=== PATIENT | male | born 1965 | race Caucasian/White ===

== ENCOUNTER 2018-12-01 17:55 | Emergency (ER) | payer OTHER, SELFPAY ==
[2018-12-01 18:11] VITALS: BP 143/99; PULSE 61; RESP 14; TEMP 36.4; O2SAT 95
[2018-12-01] MEDS: Tetracaine 0.5% 4 ML BTL OP (18:49)
[2018-12-01] MEDS: Erythromycin Ophth Oint 3.5 GM TUBE OP (18:50)
[2018-12-01] MEDS: Fluorescein STRIPS 100/BOX 1 MG OP (18:50)
[2018-12-01] MEDS: Balanced Salt Solution 15 ML BTL (19:01)
[2018-12-01] MEDS: Balanced Salt Solution 15 ML BTL OP (19:01)
--- NOTE | 2018-12-01 20:00 | W.ED.GENAD ---
Discharge Plan Disposition Patient Disposition: HOME Condition: Stable Discharge Details Chief Complaint: EyeProblem Clinical Impression: Foreign body in eyeball, right Primary Care Provider: Grey Lo ED Provider: Balaji Solis Home Meds and New Rx's Prescriptions: No Action rosuvastatin 5 mg tablet 5 mg PO DAILY Qty: 90 RF: 4 sildenafil [Viagra] 100 mg tablet See Rx Instructions PO As Directed MDD 3 Qty: 7 RF: 5 clonazepam 0.5 mg tablet 0.5 mg PO DAILY PRN (Reason: anxiety) Qty: 30 RF: 0 chlorthalidone 25 mg tablet 25 mg PO DAILY Qty: 90 RF: 3 Fish Oil 500 MG capsule 2 tab PO DAILY RF: 0 oxymetazoline [Afrin (oxymetazoline)] 15 ML spray,non-aerosol 2 spry NS PRN PRNRF: 0 Aerochamber Plus Flow-Vu 1 EACH spacer 1 ea Miscellaneous PRN Qty: 1 RF: 0 magnesium oxide 400 MG tablet 400 mg PO HS Qty: 30 RF: 3 cetirizine [Zyrtec] 10 MG tablet 10 mg PO DAILY RF: 0 lisinopril 10 MG tablet 10 mg PO DAILY Qty: 90 RF: 4 albuterol sulfate [Ventolin HFA] 90 mcg/actuation HFA aerosol inhaler 2 puff IH Q6H PRN (Reason: shortness of breath or wheezing) Qty: 18 RF: 4 ibuprofen 800 mg tablet 800 mg PO TID PRN (Reason: pain) Qty: 90 RF: 3 metoprolol tartrate 25 mg tablet 12.5 mg PO BID Qty: 90 RF: 4 aspirin [E.C. Prin] 325 MG tablet,delayed release (DR/EC) 325 mg PO DAILY RF: 0 Trelegy Ellipta 100-62.5-25 mcg Blister With Device 1 ea Inhalation DAILY RF: 0 Discharge Instructions Instructions: Eye Foreign Body (ED) Additional Instructions: Please use provided ointment 4 times daily for the next 5 days and follow-up for normal reassessment in 3 days to [facility] Referrals: [facility] [Outside] - 3 days (Please call [facility] for any worsening symptoms to arrange emergent appointment or return to emergency department) Discharge Data Discharge Date/Time-TO BE ENTERED AT DEPARTURE: 12/01/18 20:09 Medical Decision Making Patient presenting to the emergency department for chief complaint of right eye pain. Patient states that it feels like there is a foreign body in his eye but he denies any known injury or trauma to the eye. Physical exam with Hardy lamp and slit lamp does show a very small foreign body to the right eye in the 12 o'clock position along with small dye uptake . Cornea and anterior chamber appears intact with no abnormalities. There is diffuse injection of the sclera but no other corneal abrasion or other findings noted. A moistened Q-tip was utilized to remove all visible foreign body, and eye was thoroughly irrigated. No more foreign bodies were noted. Patient was placed up on erythromycin ointment due to level of irritation. Return precautions were discussed. After discussion of diagnosis and plan of care patient has no further needs, questions, or concerns and states clear understanding to return to the emergency department for any worsening symptoms. HPI General Mode of arrival: ambulatory. Date/Time Provider Initiated Documentation: 12/01/18 17:56. Limitations to Documentation: no limitations. Information obtained by: patient. History of Present Illness 53 year old M presents to the emergency department with the chief complaint of right eye injury, described as moderate, with intensity rated at 5. Quality is described as aching and sharp, and is localized to the eyes and right. Patient started experiencing this hour(s) (5) and it has been constant. No relieving factors improve symptom(s), No exacerbating factors reported . Patient notes no other symptoms.. Related Data Home Medications Medication Instructions Recorded Confirmed aspirin [E.C. Prin] 325 mg PO DAILY 04/16/13 12/01/18 omega-3 fatty acids [Fish Oil] 2 tab PO DAILY 01/31/14 12/01/18 oxymetazoline [Afrin 2 spry NS PRN PRN spray 01/31/14 12/01/18 (oxymetazoline)] Aerochamber Plus Flow-Vu #1 02/10/15 11/23/18 magnesium oxide 400 mg PO HS #30 tab 05/06/16 12/01/18 cetirizine [Zyrtec] 10 mg PO DAILY tab-cap 02/15/17 12/01/18 lisinopril 10 mg PO DAILY #90 tab-cap 02/10/18 12/01/18 albuterol sulfate HFA 90 2 puff IH Q6H PRN #18 gm 07/05/18 12/01/18 mcg/actuation aerosol inhaler clonazepam 0.5 mg tablet 0.5 mg PO DAILY PRN #30 tab 07/14/18 12/01/18 ibuprofen 800 mg tablet 800 mg PO TID PRN #90 tab-cap 07/19/18 12/01/18 metoprolol tartrate 25 mg tablet 12.5 mg PO BID #90 tab-cap 09/11/18 12/01/18 chlorthalidone 25 mg tablet 25 mg PO DAILY #90 tab 10/05/18 12/01/18 rosuvastatin 5 mg tablet 5 mg PO DAILY #90 tab 11/23/18 12/01/18 sildenafil 100 mg tablet See Rx Instructions PO As Directed 11/23/18 11/23/18 #7 tab MDD 3 [id number] 1 ea INHALATION DAILY 12/01/18 12/01/18 [Odalis Alvarez] Previous Rx's Medication Instructions Recorded lisinopril 10 mg PO DAILY #90 tab-cap 02/10/18 albuterol sulfate HFA 90 2 puff IH Q6H PRN #18 gm 07/05/18 mcg/actuation aerosol inhaler clonazepam 0.5 mg tablet 0.5 mg PO DAILY PRN #30 tab 07/14/18 ibuprofen 800 mg tablet 800 mg PO TID PRN #90 tab-cap 07/19/18 metoprolol tartrate 25 mg tablet 12.5 mg PO BID #90 tab-cap 09/11/18 chlorthalidone 25 mg tablet 25 mg PO DAILY #90 tab 10/05/18 rosuvastatin 5 mg tablet 5 mg PO DAILY #90 tab 11/23/18 sildenafil 100 mg tablet See Rx Instructions PO As Directed 11/23/18 #7 tab MDD 3 Allergies Allergy/AdvReac Type Severity Reaction Status Date / Time No Known Allergies Allergy Verified 12/01/18 18:15 General Stated Complaint: EyeProblem ROMI: 4 Review of Systems Constitutional Denies chills, Denies fever(s) and Denies headache(s) Eyes Reports as per HPI, Denies change in vision, Reports irritation, Denies loss of vision, Reports eye pain and Denies seeing flashes ENT Denies headache(s) Neurologic Denies headache(s), Denies focal weakness, Denies loss of vision, Denies other visual disturbances and Denies sensory deficit PFSH Surgical History HERNIA REPAIR Rotator Cuff Repair Family History Mother Essential hypertension Hyperlipidemia Father Diabetes Essential hypertension Heart disease Hyperlipidemia Brother Essential hypertension Heart disease Hyperlipidemia Maternal Grandfather Heart disease Paternal Grandfather Heart disease Maternal Grandmother Essential hypertension Heart disease Hyperlipidemia Paternal Grandmother Essential hypertension Heart disease Hyperlipidemia Stroke Son Substance abuse Son No problems noted. Daughter No problems noted. Social History Smoking/Tobacco Use Status: Former Tobacco Use Alcohol Intake: current Alcohol Intake frequency: 0-2 drinks per day Alcohol type: hard liquor Drug use: Occasionally Substance use type: marijuana Household members: spouse Pets and animals: Yes Pets and animals: cat(s), dog(s) and horse(s) Do you think of yourself as: straight/heterosexual Current gender identity: decline to answer What is your relationship status?: How often do you talk on the phone with friends or family?: three or more times per week How often do you get together with friends or relatives?: once per week How often do you attend synagogue or latter day services?: decline to answer Do you belong to any clubs or organized social groups?: no Panel score (0-1 are the most socially isolated patients): 1 Duration: 15-30 minutes/day Frequency: 1-2 times per week Mirta/Yazidism: Latter Day Special mirta needs: No Do you feel safe in your relationship?: Yes Exam Const General: cooperative, no acute distress and not ill appearing Orientation: alert, awake and oriented x3 HENMT Mouth: moist mucous membranes Eyes Visual Mendez: normal visual mendez by confrontation Alignment and Position: alignment normal Periorbital: periorbital findings normal Eyelids: eyelids normal Conjunctivae: conjunctivae normal Sclera: scleral abnormality right foreign body and scleral injection Cornea: corneas normal Pupils: PERRL, normal by confrontation and accommodation normal EOM: EOM intact bilaterally Resp Effort & Inspection: normal respiratory effort, able to speak in complete sentences and no respiratory distress Neuro General: alert, awake, oriented x3, moves all extremities and no focal motor deficits Sensory Exam: no sensory deficits noted Course Vital Signs Temperature 36.4 C L 12/01/18 18:11 Pulse 61 12/01/18 18:11 Respiratory Rate 14 12/01/18 18:11 Blood Pressure 143/99 H 12/01/18 18:11 Pulse Oximetry 95 12/01/18 18:11 Temperature 36.4 C L 12/01/18 18:11 Temperature Source Skin 12/01/18 18:11 Pulse 61 12/01/18 18:11 Respiratory Rate 14 12/01/18 18:11 Respiratory Effort 12/01/18 18:14 Blood Pressure 143/99 H 12/01/18 18:11 Blood Pressure Position Sitting 12/01/18 18:11 Pulse Oximetry 95 12/01/18 18:11 Oxygen Delivery Method Room Air 12/01/18 18:11 Oxygen Flow Rate 0 12/01/18 18:11 Pain Level 5 12/01/18 18:11 Comment 12/01/18 18:11
--- NOTE | 2018-12-01 20:03 | ED.GENADUL_ITS ---
Discharge Plan Disposition Patient Disposition: HOME Condition: Stable Discharge Details Chief Complaint: EyeProblem Clinical Impression: Foreign body in eyeball, right Primary Care Provider: Grey Lo ED Provider: Balaji Solis Home Meds and New Rx's Prescriptions: No Action rosuvastatin 5 mg tablet 5 mg PO DAILY Qty: 90 RF: 4 sildenafil [Viagra] 100 mg tablet See Rx Instructions PO As Directed MDD 3 Qty: 7 RF: 5 clonazepam 0.5 mg tablet 0.5 mg PO DAILY PRN (Reason: anxiety) Qty: 30 RF: 0 chlorthalidone 25 mg tablet 25 mg PO DAILY Qty: 90 RF: 3 Fish Oil 500 MG capsule 2 tab PO DAILY RF: 0 oxymetazoline [Afrin (oxymetazoline)] 15 ML spray,non-aerosol 2 spry NS PRN PRNRF: 0 Aerochamber Plus Flow-Vu 1 EACH spacer 1 ea Miscellaneous PRN Qty: 1 RF: 0 magnesium oxide 400 MG tablet 400 mg PO HS Qty: 30 RF: 3 cetirizine [Zyrtec] 10 MG tablet 10 mg PO DAILY RF: 0 lisinopril 10 MG tablet 10 mg PO DAILY Qty: 90 RF: 4 albuterol sulfate [Ventolin HFA] 90 mcg/actuation HFA aerosol inhaler 2 puff IH Q6H PRN (Reason: shortness of breath or wheezing) Qty: 18 RF: 4 ibuprofen 800 mg tablet 800 mg PO TID PRN (Reason: pain) Qty: 90 RF: 3 metoprolol tartrate 25 mg tablet 12.5 mg PO BID Qty: 90 RF: 4 aspirin [E.C. Prin] 325 MG tablet,delayed release (DR/EC) 325 mg PO DAILY RF: 0 Trelegy Ellipta 100-62.5-25 mcg Blister With Device 1 ea Inhalation DAILY RF: 0 Discharge Instructions Instructions: Eye Foreign Body (ED) Additional Instructions: Please use provided ointment 4 times daily for the next 5 days and follow-up for normal reassessment in 3 days to the [facility] Referrals: [facility] [Outside] - 3 days (Please call the [facility] for any worsening symptoms to arrange emergent appointment or return to emergency department) Discharge Data Discharge Date/Time-TO BE ENTERED AT DEPARTURE: 12/01/18 20:09 Medical Decision Making Patient presenting to the emergency department for chief complaint of right eye pain. Patient states that it feels like there is a foreign body in his eye but he denies any known injury or trauma to the eye. Physical exam with Hardy lamp and slit lamp does show a very small foreign body to the right eye in the 12 o'clock position along with small dye uptake . Cornea and anterior chamber appears intact with no abnormalities. There is diffuse injection of the sclera but no other corneal abrasion or other findings noted. A moistened Q-tip was utilized to remove all visible foreign body, and eye was thoroughly irrigated. No more foreign bodies were noted. Patient was placed up on erythromycin ointment due to level of irritation. Return precautions were discussed. After discussion of diagnosis and plan of care patient has no further needs, questions, or concerns and states clear understanding to return to the emergency department for any worsening symptoms. HPI General Mode of arrival: ambulatory . Date/Time Provider Initiated Documentation: 12/01/18 17:56 . Limitations to Documentation: no limitations . Information obtained by: patient . History of Present Illness 53 year old M presents to the emergency department with the chief complaint of right eye injury, described as moderate, with intensity rated at 5. Quality is described as aching and sharp, and is localized to the eyes and right. Jessica ent started experiencing this hour(s) (5) and it has been constant. No relieving factors improve symptom(s), No exacerbating factors reported . Patient notes no other symptoms.. Related Data Home Medications Medication Instructions Recorded Confirmed aspirin [E.C. Prin] 325 mg PO DAILY 04/16/13 12/01/18 omega-3 fatty acids [Fish Oil] 2 tab PO DAILY 01/31/14 12/01/18 oxymetazoline [Afrin 2 spry NS PRN PRN spray 01/31/14 12/01/18 (oxymetazoline)] Aerochamber Plus Flow-Vu #1 02/10/15 11/23/18 magnesium oxide 400 mg PO HS #30 tab 05/06/16 12/01/18 cetirizine [Zyrtec] 10 mg PO DAILY tab-cap 02/15/17 12/01/18 lisinopril 10 mg PO DAILY #90 tab-cap 02/10/18 12/01/18 albuterol sulfate HFA 90 2 puff IH Q6H PRN #18 gm 07/05/18 12/01/18 mcg/actuation aerosol inhaler clonazepam 0.5 mg tablet 0.5 mg PO DAILY PRN #30 tab 07/14/18 12/01/18 ibuprofen 800 mg tablet 800 mg PO TID PRN #90 tab-cap 07/19/18 12/01/18 metoprolol tartrate 25 mg tablet 12.5 mg PO BID #90 tab-cap 09/11/18 12/01/18 chlorthalidone 25 mg tablet 25 mg PO DAILY #90 tab 10/05/18 12/01/18 rosuvastatin 5 mg tablet 5 mg PO DAILY #90 tab 11/23/18 12/01/18 sildenafil 100 mg tablet See Rx Instructions PO As Directed 11/23/18 11/23/18 #7 tab MDD 3 [id number] 1 ea INHALATION DAILY 12/01/18 12/01/18 [Odalis Alvarez] Previous Rx's Medication Instructions Recorded lisinopril 10 mg PO DAILY #90 tab-cap 02/10/18 albuterol sulfate HFA 90 2 puff IH Q6H PRN #18 gm 07/05/18 mcg/actuation aerosol inhaler clonazepam 0.5 mg tablet 0.5 mg PO DAILY PRN #30 tab 07/14/18 ibuprofen 800 mg tablet 800 mg PO TID PRN #90 tab-cap 07/19/18 metoprolol tartrate 25 mg tablet 12.5 mg PO BID #90 tab-cap 09/11/18 chlorthalidone 25 mg tablet 25 mg PO DAILY #90 tab 10/05/18 rosuvastatin 5 mg tablet 5 mg PO DAILY #90 tab 11/23/18 sildenafil 100 mg tablet See Rx Instructions PO As Directed 11/23/18 #7 tab MDD 3 Allergies Allergy/AdvReac Type Severity Reaction Status Date / Time No Known Allergies Allergy Verified 12/01/18 18:15 General Stated Complaint: EyeProblem ROMI: 4 Review of Systems Constitutional Denies chills, Denies fever(s) and Denies headache(s) Eyes Reports as per HPI, Denies change in vision, Reports irritation, Denies loss of vision, Reports eye pain and Denies seeing flashes ENT Denies headache(s) Neurologic Denies headache(s), Denies focal weakness, Denies loss of vision, Denies other visual disturbances and Denies sensory deficit PFSH Surgical History HERNIA REPAIR Rotator Cuff Repair Family History Mother Essential hypertension Hyperlipidemia Father Diabetes Essential hypertension Heart disease Hyperlipidemia Brother Essential hypertension Heart disease Hyperlipidemia Maternal Grandfather Heart disease Paternal Grandfather Heart disease Maternal Grandmother Essential hypertension Heart disease Hyperlipidemia Paternal Grandmother Essential hypertension Heart disease Hyperlipidemia Stroke Son Substance abuse Son No problems noted. Daughter No problems noted. Social History Smoking/Tobacco Use Status: Former Tobacco Use Alcohol Intake: current Alcohol Intake frequency: 0-2 drinks per day Alcohol type: hard liquor Drug use: Occasionally Substance use type: marijuana Household members: spouse Pets and animals: Yes Pets and animals: cat(s), dog(s) and horse(s) Do you think of yourself as: straight/heterosexual Current gender identity: decline to answer What is your relationship status?: How often do you talk on the phone with friends or family?: three or more times per week How often do you get together with friends or relatives?: once per week How often do you attend jain or methodist services?: decline to answer Do you belong to any clubs or organized social groups?: no Panel score (0-1 are the most socially isolated patients): 1 Duration: 15-30 minutes/day Frequency: 1-2 times per week Mirta/Buddhism: Adventism Special mirta needs: No Do you feel safe in your relationship?: Yes Exam Const General: cooperative, no acute distress and not ill appearing Orientation: alert, awake and oriented x3 HENMT Mouth: moist mucous membranes Eyes Visual Mnedez: normal visual mendez by confrontation Alignment and Position: alignment normal Periorbital: periorbital findings normal Eyelids: eyelids normal Conjunctivae: conjunctivae normal Sclera: scleral abnormality right foreign body and scleral injection Cornea: corneas normal Pupils: PERRL, normal by confrontation and accommodation normal EOM: EOM intact bilaterally Resp Effort & Inspection: normal respiratory effort, able to speak in complete sentences and no respiratory distress Neuro General: alert, awake, oriented x3, moves all extremities and no focal motor deficits Sensory Exam: no sensory deficits noted Course Vital Signs Temperature 36.4 C L 12/01/18 18:11 Pulse 61 12/01/18 18:11 Respiratory Rate 14 12/01/18 18:11 Blood Pressure 143/99 H 12/01/18 18:11 Pulse Oximetry 95 12/01/18 18:11 Temperature 36.4 C L 12/01/18 18:11 Temperature Source Skin 12/01/18 18:11 Pulse 61 12/01/18 18:11 Respiratory Rate 14 12/01/18 18:11 Respiratory Effort 12/01/18 18:14 Blood Pressure 143/99 H 12/01/18 18:11 Blood Pressure Position Sitting 12/01/18 18:11 Pulse Oximetry 95 12/01/18 18:11 Oxygen Delivery Method Room Air 12/01/18 18:11 Oxygen Flow Rate 0 12/01/18 18:11 Pain Level 5 12/01/18 18:11 Comment 12/01/18 18:11
[2018-12-01 20:09] VITALS: BP 143/99; PULSE 61; RESP 14; TEMP 36.4; O2SAT 95
== END 2018-12-01 20:09 | disposition home or self-care (01) ==
PROVIDERS: Emergency Provider Nurse Practitioner Family; PCP Family Medicine
DX: T15.81XA Foreign body in other and multiple parts of external eye, right eye, initial encounter (principal)
CPT/HCPCS: 99283

== ENCOUNTER 2019-02-20 12:28 | Outpatient (CLI) | payer OTHER, SELFPAY ==
--- NOTE | 2019-02-20 13:00 | DI.CTLCSR_ITS ---
SYMPTOMS/DIAGNOSIS: PERSONAL H/O NICOTINE DEPENDENCE, Z87.891 CT SCAN OF THE CHEST: CT scan of the chest was performed according to the lung cancer screening protocol. There are no priors for comparison. Mild atherosclerosis is seen of the thoracic aorta. No aneurysmal dilatation is seen. The heart size is within normal limits. No significant pericardial effusion is present. No significant thoracic adenopathy, pleural effusion or pneumothorax is identified. Coronary artery calcifications are present. There are calcified granuloma present in the lungs. No noncalcified pulmonary nodules are seen. No focal consolidating infiltrates are present. The tracheobronchial tree is unremarkable. Degenerative changes are seen in the spine. IMPRESSION: No pulmonary nodules. Lung-RAD Category: 1- Negative Lung- RAD Management of Findings: Continue annual LDCT screening in 12 months
== END 2019-02-20 12:48 ==
PROVIDERS: PCP Family Medicine; Visit Provider Internal Medicine
DX: Z12.2 Encounter for screening for malignant neoplasm of respiratory organs (principal); Z87.891 Personal history of nicotine dependence; J98.4 Other disorders of lung
CPT/HCPCS: G0297

== ENCOUNTER 2019-02-20 18:08 | Outpatient (CLI) | payer OTHER, SELFPAY ==
[2019-02-20 12:48] LABS: Anion Gap 9.5 mmol/L (3-11); BUN 26 mg/dL (7-18); CO2 28.5 mmol/L (21.0-32.0); CREATININE 1.35 mg/dL (0.70-1.30); Calcium 8.8 mg/dL (8.5-10.1); Chloride 101 mmol/L (98-107); Cholesterol 192 mg/dL (50-200); Estimated GFR 54.87 (mL/min/1.73m2); Glucose 102 mg/dL (70-100); HDL Cholesterol 44 mg/dL (40-60); LDL CHOLESTEROL 129 mg/dL (<100); Potassium 3.9 mmol/L (3.5-5.1); Sodium 139 mmol/L (136-145); Triglyceride 67 mg/dL (30-150)
== END 2019-02-20 18:28 ==
PROVIDERS: PCP Family Medicine; Visit Provider Family Medicine
DX: E78.5 Hyperlipidemia, unspecified (principal); I10 Essential (primary) hypertension
CPT/HCPCS: 36415; 80048; 80061; 83721

== ENCOUNTER 2019-11-07 14:14 | Emergency (ER) | payer OTHER, SELFPAY ==
[2019-11-07 14:20] VITALS: BP 129/80; PULSE 72; RESP 16; TEMP 36.2; O2SAT 96
--- NOTE | 2019-11-07 14:50 | ED.GENADUL_ITS ---
Discharge Plan Disposition Patient Disposition: HOME Condition: Stable Discharge Details Chief Complaint: RespSymp Clinical Impression: Pharyngitis Primary Care Provider: Grey Lo ED Provider: Sergo Alvarez Home Meds and New Rx's Prescriptions: Continued rosuvastatin 5 mg tablet 5 mg PO DAILY Qty: 90 RF: 4 sildenafil [Viagra] 100 mg tablet See Rx Instructions PO As Directed MDD 3 Qty: 7 RF: 5 clonazepam 0.5 mg tablet 0.5 mg PO DAILY PRN (Reason: anxiety) Qty: 30 RF: 0 Breo Ellipta 100-25 mcg/dose blister with device 1 inh IH DAILY RF: 0 Fish Oil 500 MG capsule 2 tab PO DAILY RF: 0 oxymetazoline [Afrin (oxymetazoline)] 15 ML spray,non-aerosol 2 spry NS PRN PRNRF: 0 (DME) Aerochamber Plus Flow-Vu 1 EACH spacer 1 ea Miscellaneous PRN Qty: 1 RF: 0 magnesium oxide 400 MG tablet 400 mg PO HS Qty: 30 RF: 3 cetirizine [Zyrtec] 10 MG tablet 10 mg PO DAILY RF: 0 ibuprofen 800 mg tablet 800 mg PO TID PRN (Reason: pain) Qty: 90 RF: 3 metoprolol tartrate 25 mg tablet 12.5 mg PO BID Qty: 90 RF: 4 lisinopril 10 mg tablet 10 mg PO DAILY Qty: 90 RF: 4 albuterol sulfate [Ventolin HFA] 90 mcg/actuation HFA aerosol inhaler 2 puff IH Q6H PRN (Reason: shortness of breath or wheezing) Qty: 18 RF: 4 chlorthalidone 25 mg tablet 25 mg PO DAILY Qty: 90 RF: 3 aspirin [E.C. Prin] 325 MG tablet,delayed release (DR/EC) 325 mg PO DAILY RF: 0 Discharge Instructions Instructions: Pharyngitis (ED) Additional Instructions: Rapid strep negative, culture pending. Kftk-xrv-dqybthv medications as directed for symptomatic control. Salt water gargles as tolerated. Please watch for new or worsening symptoms and return to the ER for any concerns. I do recommend reaching out to your primary care provider for outpatient reevaluation Stand Alone Forms: Work Release Medical Decision Making 54-year-old gentleman presents with flulike symptoms for 1 week. Outside the window for Tamiflu, will not obtain flu swab. Patient appears well, nontoxic, afebrile, lungs are clear to auscultation O2 sats are 96% on room air. No clear indication for chest. His primary concern is that of a worsening sore throat over the past 24 hours. Patient is able to manage his secretions no difficulty, no evidence of uvula swelling or vvav-njnouxcnq-vopramoxt abscess. Rapid strep test is negative, culture pending. Discussed the process and findings with patient. Patient requests work note for tomorrow. He has no additional questions or concerns and is comfortable discharge. Medical Records Medical records reviewed: Yes I reviewed the patient's medical records. Lab Data Lab results reviewed: Yes I reviewed the patient's lab results. Lab results narrative: Negative rapid strep test HPI General Mode of arrival: ambulatory . Date/Time Provider Initiated Documentation: 11/07/19 14:23 . Limitations to Documentation: no limitations . Information obtained by: patient . HPI Narrative: 54-year-old gentleman with a history of hypertension, COPD, hyperlipidemia, presents to the ER today with flulike symptoms for approximately 1 week. He reports initially he had nasal congestion and bilateral ear pain with a dry cough, he then developed a somewhat productive cough, but what brings him here today is a sore throat over the past 24 hours. He feels as though the rest of the symptoms are actually improving. He has not taken any hoos-viw-khqblwz medications for his symptoms but has done some salt water gargles. He admits to similar sick contacts. Denies headache, fever, abdominal pain, nausea, vomiting, diarrhea, or skin rash. Related Data Home Medications Medication Instructions Recorded Confirmed aspirin [E.C. Prin] 325 mg PO DAILY 04/16/13 11/07/19 Fish Oil 2 tab PO DAILY 01/31/14 11/07/19 oxymetazoline [Afrin 2 spry NS PRN PRN spray 01/31/14 11/07/19 (oxymetazoline)] Aerochamber Plus Flow-Vu #1 02/10/15 09/07/19 magnesium oxide 400 mg PO HS #30 tab 05/06/16 11/07/19 cetirizine [Zyrtec] 10 mg PO DAILY tab-cap 02/15/17 11/07/19 clonazepam 0.5 mg tablet 0.5 mg PO DAILY PRN #30 tab 07/14/18 11/07/19 ibuprofen 800 mg tablet 800 mg PO TID PRN #90 tab-cap 07/19/18 11/07/19 metoprolol tartrate 25 mg tablet 12.5 mg PO BID #90 tab-cap 09/11/18 11/07/19 rosuvastatin 5 mg tablet 5 mg PO DAILY #90 tab 11/23/18 11/07/19 sildenafil 100 mg tablet See Rx Instructions PO As Directed 11/23/18 11/07/19 #7 tab MDD 3 lisinopril 10 mg tablet 10 mg PO DAILY #90 tab-cap 02/13/19 11/07/19 albuterol sulfate 90 mcg/actuation 2 puff IH Q6H PRN #18 gm 06/26/19 11/07/19 aerosol inhaler fluticasone furoate 100 1 inh IH DAILY 09/07/19 11/07/19 mcg-vilanterol 25 mcg/dose inhalation powder chlorthalidone 25 mg tablet 25 mg PO DAILY #90 tab 09/18/19 11/07/19 Previous Rx's Medication Instructions Recorded clonazepam 0.5 mg tablet 0.5 mg PO DAILY PRN #30 tab 07/14/18 ibuprofen 800 mg tablet 800 mg PO TID PRN #90 tab-cap 07/19/18 metoprolol tartrate 25 mg tablet 12.5 mg PO BID #90 tab-cap 09/11/18 rosuvastatin 5 mg tablet 5 mg PO DAILY #90 tab 11/23/18 sildenafil 100 mg tablet See Rx Instructions PO As Directed 11/23/18 #7 tab MDD 3 lisinopril 10 mg tablet 10 mg PO DAILY #90 tab-cap 02/13/19 albuterol sulfate 90 mcg/actuation 2 puff IH Q6H PRN #18 gm 06/26/19 aerosol inhaler chlorthalidone 25 mg tablet 25 mg PO DAILY #90 tab 09/18/19 Allergies Allergy/AdvReac Type Severity Reaction Status Date / Time No Known Allergies Allergy Verified 11/07/19 14:25 General Stated Complaint: RespSymp ROMI: 4 Review of Systems Constitutional Constitutional: Denies chills, Denies fever(s) and Denies headache(s) Eyes Eyes: Denies eye discharge ENT Ears, Nose, Mouth, and Throat: Denies headache(s) and Denies sinus pain Cardiovascular Cardiovascular: Denies chest pain and Denies dyspnea Respiratory Respiratory: Reports cough, Denies dyspnea and Denies wheezing Gastrointestinal Gastrointestinal: Denies abdominal pain, Denies nausea and Denies vomiting Neurologic Neurologic: Denies headache(s) Allergic/Immunologic Allergic/Immunologic: Denies wheezing FOR[facility]LY [facility] Surgical History HERNIA REPAIR X 3 Rotator Cuff Repair Family History Mother Essential hypertension Hyperlipidemia Father Diabetes Essential hypertension Heart disease Hyperlipidemia Brother , 34? Essential hypertension Heart disease Hyperlipidemia Maternal Grandfather Heart disease Paternal Grandfather Heart disease Maternal Grandmother Essential hypertension Heart disease Hyperlipidemia Paternal Grandmother Essential hypertension Heart disease Hyperlipidemia Stroke Son Substance abuse Son No problems noted. Daughter No problems noted. Social History Smoking/Tobacco Use Status: Former Tobacco Use Alcohol Intake: current Alcohol Intake frequency: 0-2 drinks per day Alcohol type: hard liquor Drug use: Occasionally Substance use type: marijuana Household members: spouse Pets and animals: Yes Pets and animals: cat(s), dog(s) and horse(s) Do you think of yourself as: straight/heterosexual Current gender identity: decline to answer What is your relationship status?: How often do you talk on the phone with friends or family?: three or more times per week How often do you get together with friends or relatives?: once per week How often do you attend pentecostal or judaism services?: decline to answer Do you belong to any clubs or organized social groups?: no Panel score (0-1 are the most socially isolated patients): 1 What type of physical activity do you participate in: walking Duration: 15-30 minutes/day Frequency: 1-2 times per week Mirta/Jehovah'S Witness: [employer] mirta needs: No Do you feel safe in your relationship?: Yes Exam Const General: cooperative, healthy appearing, comfortable and no acute distress Orientation: alert and awake HENMI Head: normal to inspection, normocephalic and atraumatic Ears: external ears normal, TM's normal bilaterally and EAC's normal Mouth: moist mucous membranes Throat: uvula midline and posterior oropharynx abnormal erythema (mild, no exudates) Eyes Conjunctivae: conjunctivae normal Neck Neck: normal visual inspection, full ROM, no lymphadenopathy, no meningeal signs, trachea midline and supple Resp Effort & Inspection: normal respiratory effort Auscultation: clear to auscultation bilaterally Cardio Rate: regular rate Rhythm: regular rhythm Skin General skin exam: no rashes or lesions noted Neuro General: alert and awake Psych Appearance: grossly normal Mental Status: mental status grossly normal Course Vital Signs Vital signs: Vital Signs Temperature 36.2 C L 11/07/19 14:20 Pulse 72 11/07/19 14:20 Respiratory Rate 16 11/07/19 14:20 Blood Pressure 129/80 11/07/19 14:20 Pulse Oximetry 96 11/07/19 14:20 Temperature 36.2 C L 11/07/19 14:20 Temperature Source Skin 11/07/19 14:20 Pulse 72 11/07/19 14:20 Respiratory Rate 16 11/07/19 14:20 Respiratory Effort Non-Labored 11/07/19 14:30 Respiratory Depth Normal 11/07/19 14:30 Blood Pressure 129/80 11/07/19 14:20 Blood Pressure Position Sitting 11/07/19 14:20 Pulse Oximetry 96 11/07/19 14:20 Pain Level 5 11/07/19 14:20 Lab/Test Results Lab/Test Results: 11/07/19 14:20 Pharynx Streptococcus Screen (CHRISTY) - Pending POC Strep Test-DALY(Rapid) Start: 11/07/19 14:22 Freq: .Rapid Strep Test Status: Active Protocol: Document 11/07/19 14:27 [facility] – [place] (Rec: 11/07/19 14:27 [facility] – [place] [id number]) Strep test-DALY(Rapid)-POC POC-Strep test-DALY (Rapid) Negative POC-Strep test-DALY (Rapid) Negative
== END 2019-11-07 14:57 | disposition home or self-care (01) ==
PROVIDERS: Emergency Provider Physician Assistant; PCP Family Medicine
DX: J02.9 Acute pharyngitis, unspecified (principal); I10 Essential (primary) hypertension; J44.9 Chronic obstructive pulmonary disease, unspecified; Z87.891 Personal history of nicotine dependence
CPT/HCPCS: 87880; 99282; 87081; 99283

== ENCOUNTER 2020-03-18 00:39 | Outpatient (CLI) | payer OTHER, SELFPAY ==
--- NOTE | 2020-03-18 14:57 | DI.CTLCSR_ITS ---
EXAM: CT CHEST LUNG CANCER SCREEN CLINICAL HISTORY: EX SMOKER, Z87.891, PERSONAL HX OF NICOTINE DEPENDENCE TECHNIQUE: COMPARISON: CT CT CHEST LUNG CANCER SCREEN from 02/20/2019 FINDINGS: CT examination of the chest was performed utilizing low-dose lung cancer screening protocol. Images obtained through the upper abdomen show unremarkable appearance visualized portions of spleen pancrea s adrenals and kidneys. There are multiple tiny calcified granulomas in the lungs. Note is made of coronary artery calcifica tion. No evidence mediastinal or hilar adenopathy. No noncalcified pulmonary nodule. No evidence of c onsolidation or pleural effusion. IMPRESSION: Negative LDCT. Lung RADS Cat 1 - Negative: No nodules and definitely benign nodules. Resume annual sc reening in 12 months.
== END 2020-03-18 00:59 ==
PROVIDERS: PCP Family Medicine; Visit Provider Internal Medicine
DX: Z12.2 Encounter for screening for malignant neoplasm of respiratory organs (principal); Z87.891 Personal history of nicotine dependence; J98.4 Other disorders of lung
CPT/HCPCS: G0297

== ENCOUNTER 2020-09-18 01:31 | Outpatient (CLI) | payer OTHER, SELFPAY ==
[2020-09-18 08:16] LABS: HCT 48.2 % (40.0-50.0); HGB 16.7 g/dL (13.5-17.5); MCH 31.3 pg (27.0-33.0); MCHC 34.6 % (32.0-36.0); MCV 90.4 fL (80-95); MPV 9.2 fL (8.0-11.0); Platelet Count 291 10^3/uL (130-400); RBC 5.33 10^6/uL (4.36-5.78); RDW 12.8 % (11.8-14.1); RDW-SD 42.3 fL; WBC 9.85 10^3/uL (4.4-10.8)
[2020-09-18 09:03] LABS: ALT 64 U/L (16-63); AST 35 U/L (15-37); Albumin 3.8 g/dL (3.4-5.0); Alkaline Phosphatase 72 U/L (46-116); Anion Gap 6.9 mmol/L (3-11); BUN 21 mg/dL (7-18); Bilirubin, Total 0.9 mg/dL (0.2-1.0); CO2 28.1 mmol/L (21.0-32.0); Calcium 8.7 mg/dL (8.5-10.1); Calculated LDL 128 mg/dL (<100); Chloride 102 mmol/L (98-107); Cholesterol 192 mg/dL (<200); Glucose 113 mg/dL (74-106); HDL Cholesterol 38 mg/dL (40-60); Potassium 3.8 mmol/L (3.5-5.1); Sodium 137 mmol/L (136-145); Total Protein 7.1 g/dL (6.4-8.2); Triglyceride 133 mg/dL (<150)
[2020-09-19 08:44] LABS: PSA, Screening 0.5 ng/mL (0.0-3.5)
== END 2020-09-18 01:51 ==
PROVIDERS: PCP Family Medicine; Visit Provider Family Medicine
DX: K64.0 First degree hemorrhoids (principal); R15.9 Full incontinence of feces; I10 Essential (primary) hypertension; N40.0 Benign prostatic hyperplasia without lower urinary tract symptoms; Z12.5 Encounter for screening for malignant neoplasm of prostate
CPT/HCPCS: 36415; 80053; 80061; 84153; 85027

== ENCOUNTER 2020-10-09 02:32 | Outpatient (CLI) | payer OTHER, SELFPAY ==
[2020-10-10 15:35] LABS: COVID-19 RT-PCR Result NEGATIVE (Negative)
== END 2020-10-09 02:52 ==
PROVIDERS: PCP Family Medicine; Visit Provider Surgery
DX: Z11.52 Encounter for screening for COVID-19 (principal); Z01.818 Encounter for other preprocedural examination
CPT/HCPCS: U0003

== ENCOUNTER 2020-10-13 09:18 | Day surgery (SDC) | payer OTHER, SELFPAY ==
--- NOTE | 2020-10-13 07:03 | W.COLOREPORT ---
Date of service: 10/13/20 Time of Service: 10:13 Colonoscopy Report Date of procedure: 10/13/20 Pre-op diagnosis general: Colon Cancer Screening and intermittent rectal bleeding Post-op diagnosis procedure note: other (Diverticulosis) Procedure: Colonoscopy Surgeon: Karly Putnam Anesthesia proc note operative: other (General/ASA 2/Dioni Santoro CRNA) Estimated blood loss (mL): 5 Pathology: none sent Complications: None Disposition: same day Indications: Mr. Fishman is a 55-year-old gentleman with what sounds like internal hemorrhoids which bleed occasionally. He denies having constipation or diarrhea. He does say that sometimes if he eats a big meal the night before he will have 3 or 4 bowel movements the next day. He does get diarrhea if he drinks milk or eats ice cream. I had a long discussion with him about avoiding foods that will cause him to have diarrhea. Also discussed avoiding constipation. Discussed increasing his activity, increasing water intake and eating a high-fiber diet. We discussed internal hemorrhoid banding versus just doing the topical creams as needed. I did discuss with him that even if we do hemorrhoid banding if he does not avoid foods that cause diarrhea he will get more internal hemorrhoids down the road. He did not want me to do an exam today including anoscopy. He did agree to a colonoscopy so I will be able to do the exam at that time and if there are large hemorrhoids do a banding at the same time. I would recommend that he take a couple of days off after the hemorrhoid banding as he may be uncomfortable. (2) Encounter for colorectal cancer screenin-year-old gentleman was never had a colonoscopy before he has been having some issues with internal hemorrhoids. He denies any changes in bowel habits, melena or hematochezia. He denies family history of colon cancer. He has had no abdominal pain or weight loss. We discussed colonoscopy and its risks and benefits and he agreed to proceed. Risks, benefits and complications have been reviewed. Complications include but are not limited to bleeding, pain, perforation, missed small lesion/polyp, sore throat, aspiration and adverse reaction to the medications. Questions were entertained and answered to their satisfaction and they wished to proceed. No guarantees were given or implied. We also discussed Covid testing prior to the procedure. Discussed quarantine requirements. COVID-19 testing explained to the patient. Reason for test reviewed. Quarantine per state requirements reviewed with patient. Patient understands and agrees to testing. Prep: Miralax/Dulcolax Procedure Start Time: 10:13 Procedure End Time: 10:33 Retraction Time: 15 minutes Findings: Mild sigmoid diverticulosis Procedure Description: After informed consent was obtained the patient was taken to the procedure room and placed in a left decubitous position. Monitors were applied and a time out was done. The patients name, date of , procedure, allergies to medications and metal in their body was reviewed. The patient was then sedated. Once sedated and comfortable a rectal exam was done. External exam was normal. Internal exam revealed a normal sphincter tone and no palpable masses. The prostate felt smooth and slightly enlarged. The scope was then introduced and retro-flexed. No internal hemorrhoids, polyps or masses were identified on retro-flexion. The scope was then advanced to the cecum without difficulty. The ileocecal valve and appendiceal orifice were identified. The prep was good. The scope was then slowly retracted over 15 minutes back into the rectum. There were no polyps. There was mild sigmoid diverticulosis noted. The scope was removed and the patient was woken up and taken back to Same day surgery in stable condition. The patient tolerated the procedure well and there were no immediate complications. Follow up: The patient should follow up in 10 years unless they develop changes in bowel habits or other new gastrointestinal complaints.
--- NOTE | 2020-10-13 07:04 | W.PM.DSUDISC ---
Discharge Plan Disposition Patient Disposition: HOME Condition: Good Discharge Details Reason For Visit: Colonoscopy/Internal hemorrhoid Banding Attending Provider: Karly Putnam Primary Care Provider: Fer Dangelo Home Meds and New Rx's Prescriptions: Continued lisinopril 10 mg tablet 10 mg PO DAILY Qty: 90 RF: 4 rosuvastatin 5 mg tablet 5 mg PO DAILY Qty: 90 RF: 4 metoprolol tartrate 25 mg tablet 12.5 mg PO BID Qty: 90 RF: 4 Trelegy Ellipta 100-62.5-25 mcg blister with device 1 inh inhalation DAILY RF: 0 Fish Oil 500 MG capsule 2 tab PO DAILY RF: 0 oxymetazoline [Afrin (oxymetazoline)] 15 ML spray,non-aerosol 2 spry NS PRN PRNRF: 0 (DME) Aerochamber Plus Flow-Vu 1 EACH spacer 1 ea Miscellaneous PRN Qty: 1 RF: 0 magnesium oxide 400 MG tablet 400 mg PO HS Qty: 30 RF: 3 cetirizine [Zyrtec] 10 MG tablet 10 mg PO DAILY RF: 0 albuterol sulfate [Ventolin HFA] 90 mcg/actuation HFA aerosol inhaler 2 puff IH Q6H PRN (Reason: shortness of breath or wheezing) Qty: 18 RF: 4 chlorthalidone 25 mg tablet 25 mg PO DAILY Qty: 90 RF: 3 ibuprofen 800 mg tablet 800 mg PO TID PRN (Reason: pain) Qty: 90 RF: 1 tamsulosin 0.4 mg capsule 0.4 mg PO DAILY Qty: 90 RF: 1 aspirin [E.C. Prin] 325 MG tablet,delayed release (DR/EC) 325 mg PO DAILY RF: 0 Discontinued bisacodyl [Dulcolax (bisacodyl)] 5 mg tablet,delayed release (DR/EC) 5 mg PO ONCE Qty: 4 RF: 0 polyethylene glycol 3350 17 gram powder in packet 255 g PO DAILY Qty: 15 RF: 0 Discharge Instructions Instructions: Diverticulosis (DC) Additional Instructions: Findings: diverticulosis there were no internal or external hemorrhoids Follow up: 10 years Please call if you develop: fevers >101.5 Nausea or Vomiting Abdominal pain that is not transient DAY SURGERY UNIT POST ENDOSCOPY INSTRUCTIONS 1. Because there will be medication in your system for the next 24 hours, you may feel a little sleepy. Your coordination will be affected. Therefore: a. Do not drive or operate dangerous equipment for 24 hours. b. Do not drink alcohol beverages for 24 hours (not even beer). c. Plan to go home and rest for the day. 2. Generally there are no restrictions on your activity after a day or so has gone by, but you may feel a bit fatigued for a few days. 3 After you arrive home you may have a light meal and return to a normal diet as you can tolerate it without feeling sick to your stomach. 4. After surgery, you may feel pain or discomfort. This should be only transient, but if it persists please contact your doctor. 5. If there are any questions regarding the findings of your procedure, please feel free to contact your doctor. 6. If you are unable to contact your doctor with a problem, contact the hospital at [phone]. 7. Continue all your regular medications unless directed otherwise. I understand the above instructions and have no questions. Signature of Patient or Responsible Adult Escort Date/Time Name of Responsible Adult Escort Signature of Nurse Date/Time Activity:: Activity as Tolerated Diet:: High Fiber Diet Discharge Orders Discharge Orders: Discharge Order (Routine); Ordered 10/13/20 Ordered By: Karly Putnam
[2020-10-13 09:30] VITALS: BP 139/85; PULSE 54; RESP 18; TEMP 36.7; O2SAT 98
[2020-10-13] MEDS: Lactated Ringers 1,000 ML 80 ML IV (10:00)
[2020-10-13 11:15] VITALS: BP 107/56; PULSE 54; RESP 16; TEMP 36.2; O2SAT 95
== END 2020-10-13 11:40 | disposition home or self-care (01) ==
LOC: SUR 09:19
PROVIDERS: PCP Family Medicine; Visit Provider Surgery
PROC: 0DJD8ZZ Inspection of Lower Intestinal Tract, Via Natural or Artificial Opening Endoscopic (ICD-10-PCS; CPT 45378; principal; 2020-10-13 10:30)
DX: Z12.11 Encounter for screening for malignant neoplasm of colon (principal); K62.5 Hemorrhage of anus and rectum; K57.30 Diverticulosis of large intestine without perforation or abscess without bleeding; I10 Essential (primary) hypertension; G47.33 Obstructive sleep apnea (adult) (pediatric); J44.9 Chronic obstructive pulmonary disease, unspecified
CPT/HCPCS: 45378; J2001

== ENCOUNTER 2020-12-23 08:19 | Outpatient (CLI) | payer OTHER, SELFPAY ==
[2020-12-24 15:53] LABS: COVID-19 RT-PCR UVMMC Result Negative (Negative)
== END 2020-12-23 08:20 | disposition home or self-care (01) ==
PROVIDERS: PCP Family Medicine; Visit Provider Family Medicine
DX: Z20.822 Contact with and (suspected) exposure to COVID-19 (principal)
CPT/HCPCS: U0003

== ENCOUNTER 2020-12-26 07:43 | Outpatient (CLI) | payer OTHER, SELFPAY ==
[2020-12-27 14:34] LABS: COVID-19 RT-PCR UVMMC Result Negative (Negative)
== END 2020-12-26 07:44 | disposition home or self-care (01) ==
PROVIDERS: PCP Family Medicine; Visit Provider Family Medicine
DX: Z20.822 Contact with and (suspected) exposure to COVID-19 (principal)
CPT/HCPCS: U0003

== ENCOUNTER 2021-02-17 03:34 | Outpatient (CLI) | payer OTHER, SELFPAY ==
[2021-02-17 16:01] LABS: Calculated LDL 117 mg/dL (<100); Cholesterol 177 mg/dL (<200); HDL Cholesterol 46 mg/dL (40-60); TSH (W/Ref FT4) 2.56 uIU/mL (0.36-3.74); Triglyceride 74 mg/dL (<150)
[2021-02-21 13:05] LABS: Testosterone, Bioavailable 88 ng/dL (50-190); Testosterone, Total 337 ng/dL (240-950)
== END 2021-02-17 03:35 | disposition home or self-care (01) ==
LOC: LBO 03:34
PROVIDERS: Nurse Practitioner Family; PCP Nurse Practitioner; Visit Provider Nurse Practitioner
DX: E78.5 Hyperlipidemia, unspecified (principal); Z00.00 Encounter for general adult medical examination without abnormal findings; N52.9 Male erectile dysfunction, unspecified
CPT/HCPCS: 36415; 80061; 84403; 84410; 84443

== ENCOUNTER 2021-05-15 03:50 | Outpatient (CLI) | payer OTHER, SELFPAY ==
--- NOTE | 2021-05-15 09:00 | DI.CTLCSR_ITS ---
Exam(s) CT CHEST LUNG CANCER SCREEN EXAM: CT CHEST LUNG CANCER SCREEN CLINICAL HISTORY: Screening for lung cancer,former smoker, f17.201 TECHNIQUE: Imaging Protocol: Axial computed tomography images with coronal and sagittal reformatted images were created and reviewed COMPARISON: CT CT CHEST LUNG CANCER SCREEN from 03/18/2020 FINDINGS: Tracheobronchial tree: Patent where visualized. Pulmonary parenchyma: No consolidation or dominant measurable mass. No architectural distortion. Ther e are several calcified granuloma. Lung Nodules: No noncalcified pulmonary nodules. Mediastinum and Yaritza: No dominant adenopathy or fluid collection. Pleura: No effusion or pneumothorax. Heart: The heart is not dilated. Mild coronary artery calcification. No pericardial effusion. Aorta: Thoracic aorta non-dilated.Mild atherosclerosis. Upper abdomen: Unremarkable. Soft Tissues: Unremarkable. Bones: Within normal limits. IMPRESSION: No noncalcified pulmonary nodules. Lung RADS Cat 1 - Negative: No nodules and definitely benign nodules Lung-RADS 1.0 CATEGORIES: Category 0 - Prior chest CT exam(s) being located for comparison. Category 1 - Annual screening in 12 months. No nodules or definitely benign nodules. Category 2 - Annual screening in 12 months. Benign appearance. Nodules with low likelihood of becomin g active cancer. Category 3 - 6-month follow-up. Probably benign. Short-term follow-up suggested. Nodules with low lik elihood of becoming active cancer. Category 4A - 3-month follow-up and CT/PET if >8 mm in size. Suspicious finding. Findings which requi re additional testing. Category 4B - Findings which require additional testing and tissue sampling. Suspicious finding. Modifier S- Potentially clinically significant finding. (Non lung cancer) RADIATION DOSE DELIVERED: 81.02mGy.cm Total DLP 1.84mGy CTDIvol 81.02mGy.cm Total DLP 1.84mGy CTDIvol DATA REPOSITORY: All CT scans at this facility are submitted to the National Radiology Data Registry (NRDR) Dose Index Registry (DIR) with the [employer] ([employer]). RADIATION OPTIMIZATION: All CT scans at this facility use at least one of these dose optimization te chniques: automated exposure control; mA and/or kV adjustment per patient size (includes targeted exa ms where dose is matched to clinical indication); or iterative reconstruction.
[2021-05-15 16:20] LABS: CREATININE 1.4 mg/dL (0.70-1.30); Estimated GFR 52.24 (mL/min/1.73m2); Potassium 4.1 mmol/L (3.5-5.1)
[2021-05-15 16:46] LABS: Hemoglobin A1C 6.2 % (<5.7)
== END 2021-05-15 04:10 ==
PROVIDERS: PCP Nurse Practitioner; Visit Provider Student in an Organized Health Care Education/Training Program
DX: Z12.2 Encounter for screening for malignant neoplasm of respiratory organs; F17.201 Nicotine dependence, unspecified, in remission
CPT/HCPCS: 36415; 71271; 82565; 83036; 84132

== ENCOUNTER 2021-05-20 03:06 | Outpatient (CLI) | payer OTHER, SELFPAY | END 2021-05-20 03:07 | disposition home or self-care (01) | LOC: RT 03:06 | PROVIDERS: PCP Nurse Practitioner; Visit Provider Student in an Organized Health Care Education/Training Program | DX: J44.9 Chronic obstructive pulmonary disease, unspecified (principal); Z53.9 Procedure and treatment not carried out, unspecified reason ==

== ENCOUNTER 2021-06-03 04:29 | Outpatient (CLI) | payer OTHER, SELFPAY ==
[2021-06-03] MEDS: Albuterol HFA 18 GM 200 PUFF INH IH (15:39)
[2021-06-03] MEDS: Inhaler, Assist Device 1 EACH MC (15:40)
--- NOTE | 2021-06-05 16:05 | W.PFT ---
Date of service: 06/03/21 Time of Service: 14:34 Pulmonary Function Test Result Requesting Provider Duchene Indications: Coughing Interpretation Spirometry: There is no airflow obstruction. There is no significant bronchodilator effect. Lung Volumes: Lung volumes are normal. Diffusion Capacity: Diffusion is normal. Airway Pressure: Airways resistance is normal. Impression Normal pulmonary function tests. Clinical Correlation therefore is recommended.
== END 2021-06-03 04:30 | disposition home or self-care (01) ==
PROVIDERS: PCP Nurse Practitioner; Visit Provider Student in an Organized Health Care Education/Training Program
DX: J44.9 Chronic obstructive pulmonary disease, unspecified (principal)
CPT/HCPCS: 94060; 94726; 94729

== ENCOUNTER 2021-08-06 02:16 | Outpatient (CLI) | payer OTHER, SELFPAY ==
[2021-08-06 12:21] LABS: HCT 46.7 % (40.0-50.0); HGB 15.8 g/dL (13.5-17.5); MCH 31.3 pg (27.0-33.0); MCHC 33.8 % (32.0-36.0); MCV 92.7 fL (80-95); MPV 9.9 fL (8.0-11.0); Platelet Count 294 10^3/uL (130-400); RBC 5.04 10^6/uL (4.36-5.78); RDW 12.9 % (11.8-14.1); RDW-SD 44.1 fL; WBC 9.73 10^3/uL (4.4-10.8)
[2021-08-06 13:15] LABS: BUN 23 mg/dL (7-18); Calcium 8.6 mg/dL (8.5-10.1); Glucose 108 mg/dL (74-106)
[2021-08-06 13:16] LABS: ALT 78 U/L (16-63); AST 45 U/L (15-37); Albumin 3.8 g/dL (3.4-5.0); Alkaline Phosphatase 80 U/L (46-116); Anion Gap 7.5 mmol/L (3-11); CO2 30.5 mmol/L (21.0-32.0); CREATININE 1.3 mg/dL (0.70-1.30); Chloride 102 mmol/L (98-107); Potassium 4.1 mmol/L (3.5-5.1); Sodium 140 mmol/L (136-145); Total Protein 6.8 g/dL (6.4-8.2)
== END 2021-08-06 02:17 | disposition home or self-care (01) ==
LOC: LOS 02:16
PROVIDERS: PCP Nurse Practitioner; Visit Provider Family Medicine
DX: I10 Essential (primary) hypertension (principal); R51.9 Headache, unspecified
CPT/HCPCS: 36415; 80053; 85027

== ENCOUNTER 2021-12-24 04:25 | Outpatient (CLI) | payer OTHER, SELFPAY ==
--- NOTE | 2021-12-24 15:00 | NS.NUTBLAN_ITS ---
Mitch was referred to nutritional counseling for weight management. PMH: obesity, prediabetes, HTN, GREY. 5'8 225 lbs BMI 36. Reports gaining 40 lbs since he stopped smoking 10 years ago. Diet recall: breakfast sandwich, sandwich, chips, balanced dinner, snacks at night, moderate alcohol intake. Exercise: active all day at work Session today focused on how to follow a lower carb diet with emphasis on complex carbs, lean protein and healthy fats. Provided meal plans and written material. Encouraged 10% weight loss with goal weight of 200 lbs. Mitch is focused on meeting weight loss goals and improving his overall health. No follow up planned at this time. Will follow up prn.
== END 2021-12-24 04:26 | disposition home or self-care (01) ==
LOC: DS 04:25
PROVIDERS: PCP Nurse Practitioner; Visit Provider Dietitian, Registered
DX: E66.8 Other obesity (principal); R73.03 Prediabetes; I10 Essential (primary) hypertension; Z68.38 Body mass index [BMI] 38.0-38.9, adult; Z71.3 Dietary counseling and surveillance
CPT/HCPCS: 97802

== ENCOUNTER 2022-01-11 15:09 | Outpatient (CLI) | payer OTHER, SELFPAY ==
--- NOTE | 2022-01-11 15:00 | DI.RAD_ITS ---
Exam(s) XR HAND LT COMPLETE EXAM: XR HAND LT COMPLETE CLINICAL HISTORY: left finger pain. TECHNIQUE: 2D digital imaging was performed. Three views. COMPARISON: No exams were available for comparison FINDINGS: BONES: No acute fracture is present. No bony destructive lesion is seen. JOINTS: No dislocation present. Mild narrowing of the interphalangeal joints of the fingers. No eros ions. SOFT TISSUE: Normal. IMPRESSION: Mild degenerative changes. DATA REPOSITORY: RADIATION DOSE DELIVERED:
== END 2022-01-11 15:10 | disposition home or self-care (01) ==
LOC: DIORS 15:10
PROVIDERS: PCP Nurse Practitioner; Referring Provider Nurse Practitioner; Visit Provider Physician Assistant
DX: M79.645 Pain in left finger(s) (principal); M25.842 Other specified joint disorders, left hand
CPT/HCPCS: 73130

== ENCOUNTER 2022-01-28 03:44 | Outpatient (CLI) | payer OTHER, SELFPAY ==
[2022-01-28 15:00] LABS: Hemoglobin A1C 6.1 % (<5.7)
[2022-01-28 15:52] LABS: ALT 88 U/L (16-63); AST 61 U/L (15-37); Albumin 3.8 g/dL (3.4-5.0); Alkaline Phosphatase 125 U/L (46-116); Anion Gap 10.1 mmol/L (3-11); BUN 30 mg/dL (7-18); Bilirubin, Total 0.5 mg/dL (0.2-1.0); CO2 28.9 mmol/L (21.0-32.0); CREATININE 1.2 mg/dL (0.70-1.30); Calcium 8.6 mg/dL (8.5-10.1); Chloride 102 mmol/L (98-107); Glucose 104 mg/dL (74-106); Potassium 3.7 mmol/L (3.5-5.1); Sodium 141 mmol/L (136-145)
[2022-01-28 22:24] LABS: PSA, Screening 0.7 ng/mL (<=3.5)
[2022-01-29 09:31] LABS: Calculated LDL 103 mg/dL (<100); Cholesterol 178 mg/dL (<200); HDL Cholesterol 41 mg/dL (40-60); Triglyceride 173 mg/dL (<150)
[2022-01-29 10:53] LABS: Hepatitis B Surface Ag Negative (Negative)
[2022-01-29 11:29] LABS: Hepatitis C Ab w Rflx HCV PCR Negative (Negative)
[2022-01-29 11:38] LABS: HIV-1/2 Ag & Ab Screen Negative (Negative)
== END 2022-01-28 03:45 | disposition home or self-care (01) ==
LOC: LBO 03:44
PROVIDERS: Family Medicine; PCP Nurse Practitioner; Visit Provider Nurse Practitioner
DX: I10 Essential (primary) hypertension (principal); E78.5 Hyperlipidemia, unspecified; R73.03 Prediabetes; R79.89 Other specified abnormal findings of blood chemistry; R35.1 Nocturia; Z12.5 Encounter for screening for malignant neoplasm of prostate; Z11.59 Encounter for screening for other viral diseases; Z11.4 Encounter for screening for human immunodeficiency virus [HIV]
CPT/HCPCS: 36415; 80053; 80061; 84153; 86803; 87340; 87389; 83036

== ENCOUNTER → 2022-03-22 16:22 | Outpatient (CLI) | payer OTHER, SELFPAY ==
--- NOTE | 2022-03-22 16:15 | DI.RAD_ITS ---
Exam(s) XR KNEE LT 4V AP,LAT,LIGIA,PAT EXAM: XR KNEE LT 4V AP,LAT,LIGIA,PAT CLINICAL HISTORY: evaluation effusion, pain in the left knee--M25.562. TECHNIQUE: 2D digital imaging was performed. COMPARISON: No exams were available for comparison FINDINGS: Four views No evidence of fracture or prominent joint effusion. No osseous lesions. No degenerative changes ev ident. No joint space narrowing. Bone density normal. There is calcification noted at and above the anterosuperior aspect of patella at the insertional asp ect of the quadriceps tendon. IMPRESSION: Quadriceps level calcification. No other radiographic findings in the knee. DATA REPOSITORY: RADIATION DOSE DELIVERED:
== END ==
PROVIDERS: PCP Nurse Practitioner; Visit Provider Nurse Practitioner Family
DX: M25.862 Other specified joint disorders, left knee; M25.562 Pain in left knee
CPT/HCPCS: 73564

== ENCOUNTER 2022-03-22 17:49 | Outpatient (REF) | payer OTHER, SELFPAY ==
[2022-03-22 21:13] LABS: Abs Immature Grans 0.06 10^3/uL (0.0-0.06); Absolute Basophil Count 0.05 10^3/uL (0.0-0.2); Absolute Eosinophil Count 0.59 10^3/uL (0.0-0.7); Absolute Lymphocyte Count 2.05 10^3/uL (1.2-3.4); Absolute Neutrophil Count 8.75 10^3/uL (1.2-6.7); Basophils % 0.4; Eosinophils % 4.7; HCT 45.4 % (40.0-50.0); HGB 15.4 g/dL (13.5-17.5); Immature Grans % 0.5; Lymphocytes % 16.2; MCH 31.2 pg (27.0-33.0); MCHC 33.9 % (32.0-36.0); MCV 92 fL (80-95); MPV 10.8 fL (8.0-11.0); Monocytes % 8.9; Neutrophils % 69.3; Platelet Count 339 10^3/uL (130-400); RBC 4.93 10^6/uL (4.36-5.78); RDW 13.3 % (11.8-14.1); RDW-SD 45.1 fL; WBC 12.63 10^3/uL (4.4-10.8)
[2022-03-22 21:14] LABS: Absolute Monocyte Count 1.12 10^3/uL (0.1-0.8)
[2022-03-22 21:40] LABS: Anion Gap 12.2 mmol/L (3-11); BUN 24 mg/dL (7-18); CO2 24.8 mmol/L (21.0-32.0); CREATININE 1.1 mg/dL (0.70-1.30); Chloride 102 mmol/L (98-107); Glucose 102 mg/dL (74-106); Potassium 3.7 mmol/L (3.5-5.1); Sodium 139 mmol/L (136-145); Uric Acid 5.7 mg/dL (3.5-7.2)
[2022-03-23 17:24] LABS: CRP, High Sensitivity 5.97 mg/L (See Note)
[2022-03-24 11:11] LABS: Lyme Ab w Rflx to Lyme Confirm Negative (Negative)
[2022-03-25 18:34] LABS: Anaplasma phagocytophilum Negative (Negative); B. miyamotoi PCR Negative (Negative); Babesia divergens/MO-1 Negative (Negative); Babesia duncani Negative (Negative); Babesia microti Negative (Negative); Ehrlichia chaffeensis Negative (Negative); Ehrlichia ewingii/canis Negative (Negative); Ehrlichia muris eauclairensis Negative (Negative)
== END 2022-03-22 17:50 | disposition home or self-care (01) ==
LOC: LBN 17:49
PROVIDERS: PCP Nurse Practitioner; Visit Provider Nurse Practitioner Family
DX: M25.562 Pain in left knee (principal); I10 Essential (primary) hypertension; W57.XXXA Bitten or stung by nonvenomous insect and other nonvenomous arthropods, initial encounter; T14.8XXA Other injury of unspecified body region, initial encounter
CPT/HCPCS: 80048; 86141; 87798; 84550; 85025; 86618

== ENCOUNTER 2022-07-02 01:35 | Outpatient (CLI) | payer OTHER, SELFPAY ==
[2022-07-02 17:16] LABS: Vitamin B12 602 pg/mL (193-986)
[2022-07-05 13:14] LABS: Albumin 61.8 % (55.8-66.1); Albumin g/dL 4.4 g/dL (3.6-5.2); Total Protein 7.2 g/dL (6.3-8.2)
== END 2022-07-02 01:36 | disposition home or self-care (01) ==
LOC: LBO 01:36
PROVIDERS: PCP Nurse Practitioner; Visit Provider Psychiatry & Neurology Neurology
DX: G62.9 Polyneuropathy, unspecified (principal)
CPT/HCPCS: 36415; 82607; 84165

== ENCOUNTER 2023-05-29 10:30 | Emergency (ER) | payer OTHER, SELFPAY ==
[2023-05-29 10:35] VITALS: BP 133/83; PULSE 62; RESP 18; TEMP 36.9; O2SAT 96
--- NOTE | 2023-05-29 11:00 | DI.CT_ITS ---
Exam(s) CT BRAIN NECK CTA EXAM: CT BRAIN NECK CTA CLINICAL HISTORY: pain in right occiput 2mo, lt facial paresthesia. TECHNIQUE: Imaging Protocol: Axial CT angiography was performed with multi-slice acquisition and mu lti-planar and/or 3D reconstructions. CONTRAST MATERIAL: Intravenous: Omnipaque 350 contrast volume:99 mL COMPARISON: No exams were available for comparison FINDINGS: CT Head W/O and W: Ventricles and Extra axial spaces: Normal in size and morphology for the patient's age. Hemorrhage: None. Cerebral parenchyma: There is no evidence of an acute territorial infarct. Midline shift: None. Brainstem/Cerebellum: Normal. Calvarium: Normal. Visualized Paranasal sinuses/Mastoids: Clear. Soft Tissues: Unremarkable. Enhancement: Unremarkable. CTA Neck W: Common Carotid: Right: No dissection, occlusion or significant stenosis. Left: No dissection, occlusion or significant stenosis. External Carotid: Right: No occlusion or significant stenosis. Left: No occlusion or significant stenosis. Internal Carotid: Right: No dissection, occlusion or significant stenosis. Mild atherosclerosis at the origin. Left: No dissection, occlusion or significant stenosis. Mild atherosclerosis at the origin. Vertebral Artery: Right: No dissection, occlusion or significant stenosis. Mild atherosclerosis at the origin. Left: No dissection, occlusion or significant stenosis. Lung Apices: Normal. Bones: Within normal limits for the patient's age. Soft Tissues: Normal. Thyroid gland: Unremarkable. CTA Brain W: Internal Carotid Arteries: No aneurysm, occlusion or significant stenosis. Atherosclerosis is seen o n the right. Anterior Cerebral Arteries: Right: No aneurysm, occlusion or significant stenosis. Left: No aneurysm, occlusion or significant stenosis. Middle Cerebral Arteries: Right: No aneurysm, occlusion or significant stenosis. Left: No aneurysm, occlusion or significant stenosis. Posterior Cerebral Arteries: Right: No aneurysm, occlusion or significant stenosis. Left: No aneurysm, occlusion or significant stenosis. Vertebral Arteries: Right: No aneurysm, occlusion or significant stenosis. Left: No aneurysm, occlusion or significant stenosis. Basilar Artery: No aneurysm, occlusion or significant stenosis. IMPRESSION: 1. No large vessel occlusion or significant stenosis on the CT angiography of the head. 2. No acute intracranial process. 3. No occlusion or significant stenosis on the CT angiography of the neck. RADIATION DOSE DELIVERED: 2,011.75mGy.cm Total DLP DATA REPOSITORY: All CT scans at this facility are submitted to the National Radiology Data Registry (NRDR) Dose Index Registry (DIR) with the [employer] (ACR). RADIATION OPTIMIZATION: All CT scans at this facility use at least one of these dose optimization te chniques: automated exposure control; mA and/or kV adjustment per patient size (includes targeted exa ms where dose is matched to clinical indication); or iterative reconstruction.
--- NOTE | 2023-05-29 11:16 | ED.GENADUL_ITS ---
Discharge Plan Disposition Patient Disposition: Home Condition: Stable Discharge Details Clinical Impression: Neck pain Primary Care Provider: Meir Vega ED Provider: Don Samaniego Home Meds and New Rx's Prescriptions: Continued vitamin B complex Capsule 1 cap PO DAILY multivitamin Tablet 1 tab PO DAILY hydrocodone-acetaminophen 10-325 mg tablet 1 tab PO BID MDD 20mg PRN (Reason: pain) Qty: 20 0RF hydrocortisone-pramoxine 2.5-1 % cream 1 applic OR after BM Qty: 30 3RF Rx Instructions: Apply to anus melatonin 10 mg tablet 10 mg PO HS PRN simvastatin 5 mg tablet 5 mg PO QHS Qty: 90 3RF albuterol sulfate [Ventolin HFA] 90 mcg/actuation HFA aerosol inhaler 2 puff IH Q6H PRN (Reason: shortness of breath or wheezing) Qty: 18 4RF Trelegy Ellipta 200-62.5-25 mcg blister with device 1 inh inhalation DAILY Qty: 60 12RF lisinopril 10 mg tablet 10 mg PO DAILY Qty: 90 4RF metoprolol succinate 25 mg tablet extended release 24 hr 25 mg PO DAILY Qty: 90 3RF cyclobenzaprine 10 mg tablet 10 mg PO TID PRN (Reason: muscle spasm) Qty: 60 0RF Fish Oil 500 MG capsule 2 tab PO DAILY Patient Comments: 01-11-18 pt reports that he hakes 1200 mg daily. hb (DME) Aerochamber Plus Flow-Vu 1 EACH spacer 1 ea Miscellaneous PRN Qty: 1 cetirizine [Zyrtec] 10 MG tablet 10 mg PO DAILY magnesium oxide 400 mg (241.3 mg magnesium) tablet 400 mg PO HS Qty: 90 0RF ibuprofen 800 mg tablet 800 mg PO TID PRN (Reason: pain) Qty: 90 3RF Rx Instructions: take with food chlorthalidone 25 mg tablet 25 mg PO DAILY Qty: 90 3RF tamsulosin 0.4 mg capsule 0.8 mg PO DAILY Qty: 180 4RF aspirin [E.C. Prin] 325 MG tablet,delayed release (DR/EC) 325 mg PO DAILY Discharge Instructions Instructions: Neck Pain (ED) Additional Instructions: Please follow-up with your doctor. Additional outpatient diagnostic testing may be necessary. Avoid activities that worsen pain. Please contact your primary care physician to arrange follow-up. Return to the ER immediately for any worsening or new concerning symptoms. Referrals: Meir Vega PROPULSION ENGINEER [Primary Care Provider] - Discharge Data Discharge Date/Time-TO BE ENTERED AT DEPARTURE: 05/29/23 13:25 Medical Decision Making 1130 --57-year-old male with history of diabetes, hypertension, prediabetic, h ere with 2 months of right posterior neck and occipital pain refractory to NSAIDs, muscle relaxants and chiropractic manipulation. Patient also with some intermittent paresthesias of his left face and neck. Cannot reproduce pain on palpation. Patient notes pain seems deeper. Consider vertebral arterial dissection versus musculoskeletal etiology. Plan to obtain CTA of the head and neck. 1245 --CT of the brain interpreted radiology: No large vessel stenosis or occlusion. Unremarkable CT of the brain. CTA of the neck was interpreted by radiology: No stenosis or occlusion. Suspect musculoskeletal etiology. Plan for discharge with outpatient follow-up with PCP. Offered soft collar and patient declined noting his collar at home. Usual customary discharge instructions were reviewed with the patient Lab Data Lab results reviewed: Yes I reviewed the patient's lab results. Labs: Laboratory Tests Range/Units 05/29/23 05/29/23 11:15 11:15 WBC (4.4-10.8) 10^3/uL 10.58 RBC (4.36-5.78) 10^6/uL 4.99 Hgb (13.5-17.5) g/dL 16.0 Hct (40.0-50.0) % 45.5 MCV (80-95) fL 91 MCH (27.0-33.0) pg 32.1 MCHC (32.0-36.0) % 35.2 RDW (11.8-14.1) % 12.6 Plt Count (130-400) 10^3/uL 296 MPV (8.0-11.0) fL 9.1 Immature Gran % 0.4 Neutrophils % 66.2 Lymphocytes % 18.2 Monocytes % 8.6 Eosinophils % 6.1 Basophils % 0.5 Nucleated RBC % (0.0-0.3) % 0.0 Absolute Neutrophils (1.2-6.7) 10^3/uL 7.00 H Absolute Lymphocytes (1.2-3.4) 10^3/uL 1.93 Absolute Monocytes (0.1-0.8) 10^3/uL 0.91 H Absolute Eosinophils (0.0-0.7) 10^3/uL 0.65 Absolute Basophils (0.0-0.2) 10^3/uL 0.05 Sodium (136-145) mmol/L 138 Potassium (3.5-5.1) mmol/L 3.4 L Chloride (98-107) mmol/L 101 Carbon Dioxide (21.0-32.0) mmol/L 30.0 Anion Gap (3-11) mmol/L 7.0 BUN (7-18) mg/dL 26 H Creatinine (0.70-1.30) mg/dL 1.1 Est GFR (CKD-EPI 2020) (mL/min/1.73m2) 77.33 Glucose (74-106) mg/dL 112 H Calcium (8.5-10.1) mg/dL 9.0 HPI General Mode of arrival: ambulatory . Date/Time Provider Initiated Documentation: 05/29/23 10:31 . Limitations to Documentation: no limitations . Information obtained by: patient . HPI Narrative: 57-year-old male with multimedical problems including hypertension, hyperlipidemia, prediabetic, presents with chief complaint of neck pain. Patient states he has had about 2 months of right-sided posterior neck pain that has been intermittent and waxing and waning since onset. Pain is severe at times. Last night he is not able to sleep. Pain is described as sharp and throbbing. He also notes some associated paresthesias in his left face and neck over the past few weeks. Patient does not recall any trauma. No visual changes. No numbness or tingling elsewhere. No chest pain. No headache. Patient has been seen by his PCP, chiropractor, and [facility] care. He has not yet had diagnostic imagings performed. Related Data Home Medications Medication Instructions Recorded Confirmed aspirin 325 mg tablet,delayed 325 mg PO DAILY 04/16/13 05/29/23 release (E.C. Prin) omega-3 fatty acids 500 mg capsule 2 tab PO DAILY 01/31/14 05/29/23 (Fish Oil) inhalational spacing device ##1 02/10/15 05/29/23 (Aerochamber Plus Flow-Vu) cetirizine 10 mg tablet (Zyrtec) 10 mg PO DAILY 02/15/17 05/29/23 magnesium oxide 400 mg (241.3 mg 400 mg PO HS #90 tabs 11/03/20 05/29/23 magnesium) tablet melatonin 10 mg tablet 10 mg PO HS PRN 11/10/21 05/29/23 multivitamin 1 tab PO DAILY 01/11/22 05/29/23 vitamin B complex 1 cap PO DAILY 01/11/22 05/29/23 ibuprofen 800 mg tablet 800 mg PO TID PRN pain #90 tab-caps 08/27/22 05/29/23 chlorthalidone 25 mg tablet 25 mg PO DAILY #90 tabs 11/15/22 05/29/23 albuterol sulfate 90 mcg/actuation 2 puff inhalation Q6H PRN 12/01/22 05/29/23 aerosol inhaler (Ventolin HFA) shortness of breath or wheezing #18 grams fluticasone fur. 200 mcg-umeclid 1 inh inhalation DAILY #60 ea 12/01/22 05/29/23 62.5 mcg-vilant 25 mcg inhalat.powder (Trelegy Ellipta) lisinopril 10 mg tablet 10 mg PO DAILY #90 tab-caps 12/01/22 05/29/23 metoprolol succinate 25 mg 25 mg PO DAILY #90 tabs 12/01/22 05/29/23 tablet,extended release 24 hr simvastatin 5 mg tablet 5 mg PO QHS #90 tabs 12/01/22 05/29/23 tamsulosin 0.4 mg capsule 0.8 mg PO DAILY #180 caps 02/25/23 05/29/23 hydrocodone 10 mg-acetaminophen 1 tab PO BID PRN pain #20 tabs 05/06/23 05/29/23 325 mg tablet hydrocortisone-pramoxine 2.5 %-1 % 1 applic OR after BM #30 grams 05/06/23 05/29/23 rectal cream cyclobenzaprine 10 mg tablet 10 mg PO TID PRN muscle spasm #60 05/19/23 05/29/23 tabs Previous Rx's Medication Instructions Recorded magnesium oxide 400 mg (241.3 mg 400 mg PO HS #90 tabs 11/03/20 magnesium) tablet ibuprofen 800 mg tablet 800 mg PO TID PRN pain #90 tab-caps 08/27/22 chlorthalidone 25 mg tablet 25 mg PO DAILY #90 tabs 11/15/22 albuterol sulfate 90 mcg/actuation 2 puff inhalation Q6H PRN 12/01/22 aerosol inhaler (Ventolin HFA) shortness of breath or wheezing #18 grams fluticasone fur. 200 mcg-umeclid 1 inh inhalation DAILY #60 ea 12/01/22 62.5 mcg-vilant 25 mcg inhalat.powder (Trelegy Ellipta) lisinopril 10 mg tablet 10 mg PO DAILY #90 tab-caps 12/01/22 metoprolol succinate 25 mg 25 mg PO DAILY #90 tabs 12/01/22 tablet,extended release 24 hr simvastatin 5 mg tablet 5 mg PO QHS #90 tabs 12/01/22 tamsulosin 0.4 mg capsule 0.8 mg PO DAILY #180 caps 02/25/23 hydrocodone 10 mg-acetaminophen 1 tab PO BID PRN pain #20 tabs 05/06/23 325 mg tablet hydrocortisone-pramoxine 2.5 %-1 % 1 applic OR after BM #30 grams 05/06/23 rectal cream cyclobenzaprine 10 mg tablet 10 mg PO TID PRN muscle spasm #60 05/19/23 tabs Allergies Allergy/AdvReac Type Severity Reaction Status Date / Time house dust Allergy Verified 05/29/23 10:40 pollen extracts Allergy Verified 05/29/23 10:40 Mahxtud-BSQ-UgJ Reductase AdvReac severe Verified 05/29/23 10:40 Inhibitor muscle pain [Mmwawan-Qti-Esr Reductase Inhibitor] seasonal Allergy Uncoded 05/29/23 10:40 General Stated Complaint: Nk/Back Pain ROMI: 4 Review of Systems All systems reviewed & are unremarkable except as noted in HPI and below Constitutional Constitutional: Denies fever(s) Neurologic Neurologic: Reports as per HPI PFSH All Active Problems (Updated 05/29/23 @ 12:50 by Don Samaniego MD) Neck pain (Acute) Low back pain (Acute) Neck pain (Acute) Posterior right side. Chronic allergic rhinitis (Acute) Sciatica (Acute) Peripheral neuropathy (Acute) Personal history of nicotine dependence (Acute) Quit in 2010 Chronic rhinitis (Acute) Asthma-COPD overlap syndrome (Acute) COVID-19 (Acute) 03/03/22 Vaccinated with booster Essential hypertension (Acute 10/29/13) Nocturia (Acute 05/28/16) Obstructive sleep apnea (Acute) CPAP Hyperlipidemia (Acute) Prediabetes (Acute) Elevated liver function tests (Acute) 10/2021: Probable fatty liver syndrome Obesity (Chronic) Medical History BPH (benign prostatic hyperplasia) Hypercholesterolemia Hypertension Hypogonadism in male (10/30/15) 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 Essential hypertension Heart disease Hyperlipidemia Maternal Grandfather Heart disease Paternal Grandfather , age 69 Heart disease Maternal Grandmother , age 70 Essential hypertension Heart disease Hyperlipidemia Paternal Grandmother , age 68 Essential hypertension Heart disease Hyperlipidemia Stroke Son Substance abuse Son No problems noted. Daughter No problems noted. Social History Smoking/Tobacco Use Status: Former Tobacco Use tobacco type: cigarettes Quit Date: 09/26/10 Tobacco: How many years used: 25 Second Hand Exposure: Yes Smoking risk assessment performed?: Yes Alcohol Intake: current Alcohol Intake frequency: a few times a week Alcohol type: hard liquor Drug use: Occasionally Substance use type: marijuana Caregiver/Support person: No Household members: spouse Housing: house Do you need help understanding health information?: Never Pets and animals: Yes Pets and animals: cat(s), dog(s) and horse(s) Sexually active: No Do you think of yourself as: straight/heterosexual Current gender identity: male What is your relationship status?: How often do you talk on the phone with friends or family?: three or more times per week How often do you get together with friends or relatives?: once per week How often do you attend voodoo or methodist services?: decline to answer Do you belong to any clubs or organized social groups?: no Panel score (0-1 are the most socially isolated patients): 1 What type of physical activity do you participate in: walking, weight lifting and running Duration: 60-90 minutes/day Frequency: 5-6 times per week Mirta/Faith: Mandaeism Special mirta needs: No Seatbelt use: sometimes Helmet use: Yes Helmet use: sometimes Drive intox or ride w/intox new car driver: No Do you feel safe at home: Yes Do you feel safe in your relationship?: Yes Exam Const General: cooperative and no acute distress HENMT Head: normocephalic and atraumatic Mouth: moist mucous membranes Eyes Conjunctivae: normal conjunctivae Sclera: normal sclerae EOM: EOM intact bilaterally Neck Neck: trachea midline and supple Resp Auscultation: clear to auscultation bilaterally, no rales, no rhonchi and no wheezes Cardio Rate: regular rate and not tachycardic Rhythm: regular rhythm Back/Spine/Pelvis Back: No erythema and No warmth Cervical Spine: No cervical spinal tenderness Thoracic/Lumbar Spine: No thoracic spinal tenderness and No lumbar spinal tenderness Skin General skin exam: no rashes or lesions noted Neuro General: patient alert, patient awake, patient oriented x3 and tone normal Cranial Nerves: CN's II-XI intact bilaterally Cognition: normal cognition Speech: speech normal Motor: strength 5/5 throughout Sensory Exam: no sensory deficits noted Extrem General: no edema Psych Appearance: grossly normal Mental Status: mental status grossly normal Course Vital Signs Vital signs: Vital Signs Temperature 36.9 C 05/29/23 10:35 Pulse 62 05/29/23 10:35 Respiratory Rate 18 05/29/23 10:35 Blood Pressure 133/83 05/29/23 10:35 Pulse Oximetry 96 05/29/23 10:35 Temperature 36.9 C 05/29/23 10:35 Pulse 62 05/29/23 10:35 Respiratory Rate 18 05/29/23 10:35 Respiratory Effort Normal, Non-Labored 05/29/23 10:51 Blood Pressure 133/83 05/29/23 10:35 Blood Pressure Position Sitting 05/29/23 10:35 Pulse Oximetry 96 05/29/23 10:35 Oxygen Delivery Method Room Air 05/29/23 10:35 Oxygen Flow Rate 0 05/29/23 10:35
[2023-05-29 11:26] LABS: Abs Immature Grans 0.04 10^3/uL (0.0-0.06); Absolute Basophil Count 0.05 10^3/uL (0.0-0.2); Absolute Eosinophil Count 0.65 10^3/uL (0.0-0.7); Absolute Lymphocyte Count 1.93 10^3/uL (1.2-3.4); Absolute Monocyte Count 0.91 10^3/uL (0.1-0.8); Basophils % 0.5; Eosinophils % 6.1; HCT 45.5 % (40.0-50.0); Immature Grans % 0.4; Lymphocytes % 18.2; MCH 32.1 pg (27.0-33.0); MCHC 35.2 % (32.0-36.0); MCV 91 fL (80-95); MPV 9.1 fL (8.0-11.0); Monocytes % 8.6; Neutrophils % 66.2; Platelet Count 296 10^3/uL (130-400); RBC 4.99 10^6/uL (4.36-5.78); RDW 12.6 % (11.8-14.1); RDW-SD 42.1 fL; WBC 10.58 10^3/uL (4.4-10.8)
[2023-05-29 11:34] LABS: BUN 26 mg/dL (7-18); CREATININE 1.1 mg/dL (0.70-1.30); Chloride 101 mmol/L (98-107); Estimated GFR 77.33 (mL/min/1.73m2); Glucose 112 mg/dL (74-106); Potassium 3.4 mmol/L (3.5-5.1); Sodium 138 mmol/L (136-145)
[2023-05-29] MEDS: Omnipaque 350 MG/ML 100 ML BTL IJ (11:49)
--- NOTE | 2023-05-29 12:42 | DI.VRAD_ITS ---
PROCEDURE INFORMATION: Exam: CTA Head With Contrast, Arteriography Exam date and time: 05/29/2023 11:52 AM Age: 57 years old Clinical indication: Other: Neck pain TECHNIQUE: Imaging protocol: Computed tomographic angiography of the head with contrast. Exam focused on the arteries. 3D rendering (Not supervised by radiologist): MIP and/or 3D reconstructed images were created by the technologist. Contrast material: OMNIPAQUE 350; Contrast volume: 100 ml; Contrast route: INTRAVENOUS (IV); COMPARISON: No relevant prior studies available. FINDINGS: ANTERIOR CIRCULATION: Right internal carotid artery: Intracranial segment is patent with no significant stenosis. No aneurysm. Right middle cerebral artery: No occlusion or significant stenosis. No aneurysm. Right anterior cerebral artery: No occlusion or significant stenosis. No aneurysm. Left internal carotid artery: Intracranial segment is patent with no significant stenosis. No aneurysm. Left middle cerebral artery: No occlusion or significant stenosis. No aneurysm. Left anterior cerebral artery: No occlusion or significant stenosis. No aneurysm. POSTERIOR CIRCULATION: Right vertebral artery: No occlusion or significant stenosis. No aneurysm. Left vertebral artery: No occlusion or significant stenosis. No aneurysm. Basilar artery: No occlusion or significant stenosis. No aneurysm. Right posterior cerebral artery: No occlusion or significant stenosis. No aneurysm. Left posterior cerebral artery: No occlusion or significant stenosis. No aneurysm. Brain: No definite mass, mass effect, or midline shift. Cerebral ventricles: No ventriculomegaly. Paranasal sinuses: There is mucosal thickening in the left maxillary sinus with an air-fluid level. Bones/joints: Unremarkable. No acute fracture. Soft tissues: Unremarkable. IMPRESSION: No large vessel stenosis or occlusion. Unremarkable CT of the brain. PROCEDURE INFORMATION: Exam: CTA Neck With Contrast Exam date and time: 05/29/2023 11:52 AM Age: 57 years old Clinical indication: Other: Neck pain TECHNIQUE: Imaging protocol: Computed tomographic angiography of the neck with contrast. 3D rendering (Not supervised by radiologist): MIP and/or 3D reconstructed images were created by the technologist. Contrast material: OMNIPAQUE 350; Contrast volume: 100 ml; Contrast route: INTRAVENOUS (IV); COMPARISON: CT CHEST LUNG CANCER SCREEN 21/05/2022 14:37 FINDINGS: Right common carotid artery: No stenosis. No dissection or occlusion. Right internal carotid artery: No stenosis of the extracranial segment. No dissection or occlusion. Right external carotid artery: No occlusion or stenosis of the origin. Left common carotid artery: No stenosis. No dissection or occlusion. Left internal carotid artery: No stenosis of the extracranial segment. No dissection or occlusion. Left external carotid artery: No occlusion or stenosis of the origin. Right vertebral artery: No stenosis. No dissection or occlusion. Left vertebral artery: No stenosis. No dissection or occlusion. Soft tissues: Normal. No significant soft tissue swelling. Bones/joints: Prominent degenerative changes throughout the cervical spine. IMPRESSION: No stenosis or occlusion. REFERENCES: NASCET CRITERIA. The degree of stenosis in the cervical segment of the internal carotid artery is based on NASCET criteria. Normal is no stenosis. Mild is less than 50% stenosis. Moderate is 50-69% stenosis. Severe is 70% to 99% stenosis. Total occlusion is no detectable patent lumen. Dictated and Authenticated by: Jose Guadalupe Almaraz MD. Ordering:RAZA Ochoa MD
[2023-05-29 13:12] VITALS: BP 132/88; PULSE 62; RESP 18; O2SAT 95
== END 2023-05-29 13:25 | disposition home or self-care (01) ==
PROVIDERS: Emergency Provider Student in an Organized Health Care Education/Training Program; PCP Nurse Practitioner Family
DX: M54.2 Cervicalgia (principal); E11.9 Type 2 diabetes mellitus without complications; I10 Essential (primary) hypertension; Z79.84 Long term (current) use of oral hypoglycemic drugs; Z79.82 Long term (current) use of aspirin; Z87.891 Personal history of nicotine dependence
CPT/HCPCS: 70496; 70498; 80048; 99285; 85025; 99283; J3490

== ENCOUNTER → 2023-06-15 02:07 | Outpatient (CLI) | payer OTHER, SELFPAY ==
--- NOTE | 2023-06-15 08:45 | DI.MRI_ITS ---
Exam(s) MR CERVICAL SPINE WO EXAM: MR CERVICAL SPINE WO CLINICAL HISTORY: neck pain, right,M54.2 TECHNIQUE: Multiplanar multisequence MRI of the cervical spine was performed without intravenous con trast. COMPARISON: CT CT BRAIN NECK CTA from 05/29/2023 FINDINGS: BONES: Vertebral body heights are maintained. Alignment is normal. Bone marrow signal intensity is wi thin normal limits. CERVICAL CORD: Craniovertebral junction is unremarkable. The cervical cord is normal size and signal intensity. SOFT TISSUES: Unremarkable. C2-3: No disc herniation or bulge is identified. No evidence of neural foraminal narrowing. No signi ficant central canal stenosis. C3-4: No disc herniation or bulge is identified. Bilateral neural foraminal narrowing. Facet degene rative changes greatest at greater on the left. No significant central canal stenosis.. C4-5:Moderate loss of disc height. Prominent broad-based disc osteophytes. Significant narrowing of t he AP dimension of the central canal without CSF remaining around the cord with apparent impingement on the cord. Diameter of the AP dimension is approximately 7 millimeters. Severe bilateral neural for aminal narrowing. C5-6: Moderate loss of disc height. Small broad-based disc osteophytes. Bilateral neural foraminal narrowing. Narrowing of the AP dimension of the canal. C6-7: Moderate loss of disc height. Broad-based disc osteophytes. Significant narrowing of the AP d imension of the central canal. Bilateral neural foraminal narrowing. C7-T1: Mild loss of disc height. Mild endplate osteophytes. No evidence of neural foraminal narrowi ng. No significant central canal stenosis. IMPRESSION: Severe degenerative disc changes from C4-5 through C6-7 causing narrowing of the AP dimension of the central canal and severe bilateral neural foraminal narrowing. No disc herniation. DATA REPOSITORY:
== END ==
PROVIDERS: PCP Nurse Practitioner Family; Visit Provider Physician Assistant
DX: M99.61 Osseous and subluxation stenosis of intervertebral foramina of cervical region (principal)
CPT/HCPCS: 72141

== ENCOUNTER 2023-06-15 16:44 | Outpatient (CLI) | payer OTHER, SELFPAY ==
[2023-06-15 15:26] LABS: ESR 11 mm/hr (0-20)
== END 2023-06-15 16:45 | disposition home or self-care (01) ==
LOC: LBO 16:45
PROVIDERS: PCP Nurse Practitioner Family; Visit Provider Nurse Practitioner Family
DX: M54.2 Cervicalgia (principal); M79.18 Myalgia, other site
CPT/HCPCS: 36415; 85652

== ENCOUNTER → 2023-08-24 02:10 | Outpatient (CLI) | payer OTHER, SELFPAY ==
--- NOTE | 2023-08-24 | DI.MRI_ITS ---
Exam(s) MR LUMBAR SPINE WO EXAM: MR LUMBAR SPINE WO CLINICAL HISTORY: RT FOOT DROP,LUMBAR RADICULOPATHY,BALANCE PROBLEM,PARESTHESIA,M21.371,R20.2. TECHNIQUE: Multiplanar multisequence MRI of the Lumbar spine was performed. COMPARISON: No exams were available for comparison FINDINGS: The examination is limited due to patient motion artifact. Bones: The last intervertebral disc space is designated the L5/S1 level for the numbering purpose of this examination. The vertebral body heights are well maintained. Alignment is satisfactory. Degene rative endplate signal changes are seen at multiple levels of the lumbar spine particularly at the L2 -L3 level. Cord: The conus tip ends at the T12 level. It is of normal size and signal intensity. T12-L1: No disc herniations or bulges are present. No central spinal canal or neural foraminal stenos is. L1-2: No disc herniations or bulges are present. No central spinal canal or neural foraminal stenosis . L2-3: There is a diffuse disc bulge. Degenerative changes of the facets are seen. There is a small synovial cyst projecting into the central spinal canal arising from the left facet joint. There is a [id number] central spinal canal stenosis and moderate bilateral neural foraminal stenosis. L3-4: There is a diffuse disc bulge. No significant central spinal canal stenosis is seen. There is mild right and marked left neural foraminal stenosis. L4-5: There is a diffuse disc bulge. There are hypertrophic changes of the facets and ligamentum fla vum. The findings result in moderately severe central spinal canal stenosis. There is marked right and moderate left neural foraminal stenosis. L5-S1: There is a mild diffuse disc bulge. There are degenerative changes of the facets. No signifi cant central spinal canal stenosis is present. There is marked left neural foraminal stenosis. Mode rate right neural foraminal stenosis is present. Soft tissues: The visualized SI joints and sacrum are well maintained. The paraspinal soft tissues ar e unremarkable. Visualized abdominal organs: There is a right renal cyst. IMPRESSION: Multilevel degenerative changes are seen in the lumbar spine resulting in central spinal canal and ne ural foraminal stenosis as described above. DATA REPOSITORY:
== END ==
PROVIDERS: PCP Nurse Practitioner Family; Visit Provider Nurse Practitioner Family
DX: M54.16 Radiculopathy, lumbar region (principal); R26.89 Other abnormalities of gait and mobility; R20.2 Paresthesia of skin
CPT/HCPCS: 72148

== ENCOUNTER 2023-12-14 14:48 | Outpatient (CLI) | payer OTHER, SELFPAY ==
--- NOTE | 2023-12-14 09:15 | DI.RAD_ITS ---
Exam(s) XR ANKLE RT COMPLETE EXAM: XR ANKLE RT COMPLETE CLINICAL HISTORY: RIGHT ANKLE PAIN. TECHNIQUE: 2D digital imaging was performed. Three views. COMPARISON: CR RIGHT FOOT COMPLETE from 04/16/2013 CR LEFT FOOT COMPLETE from 04/16/2013 FINDINGS: BONES: No acute fracture is present. No bony destructive lesion is seen. Small heel spurs. JOINTS: The ankle mortise is normally aligned. SOFT TISSUE: Swelling. A small smoothly marginated bony density dorsal to the talus was present on t he previous exam. IMPRESSION: Soft tissue swelling. DATA REPOSITORY: RADIATION DOSE DELIVERED:
== END 2023-12-14 14:49 | disposition home or self-care (01) ==
LOC: DIORS 14:52
PROVIDERS: PCP Nurse Practitioner Family; Visit Provider Student in an Organized Health Care Education/Training Program
DX: M25.571 Pain in right ankle and joints of right foot (principal)
CPT/HCPCS: 73610

== ENCOUNTER → 2023-12-21 17:19 | Outpatient (CLI) | payer OTHER, SELFPAY ==
--- NOTE | 2023-12-21 15:10 | DI.MRI_ITS ---
Exam(s) MR LOWER JOINT RT WO EXAM: MR LOWER JOINT RT WO CLINICAL HISTORY: achilles tendon tear, S86.019A TECHNIQUE: Multiplanar multisequence MRI was performed without intravenous contrast. COMPARISON: CR XR ANKLE RT COMPLETE from 12/14/2023 FINDINGS: BONES/JOINTS: Area of high signal in the medial talar dome without overlying cartilage defect. No sultana ne lesions identified. The talar dome is smooth. The ankle mortise is maintained. No joint effusion i s present. Calcaneal enthesophytes. LIGAMENTS: The tibiofibular and calcaneofibular ligaments are intact. The talofibular ligaments are i ntact. The deltoid ligament is intact. The syndesmosis is unremarkable. Sinus tarsi is normal. MUSCULOTENDINOUS STRUCTURES: Achilles tendon: The Achilles tendon is thickened beginning just beneath the muscle tendon junction. There is a full-thickness tear with disruption of fibers with proximal retraction. The separation i s proximally 5 centimeters. The distal on most portion of the Achilles tendon appears intact. The plantaris tendon is intact. Plantar fascia: Unremarkable. Anterior Extensor tendons: Unremarkable. Posterior Tibialis: Unremarkable. Flexor Digitorum longus: Unremarkable. Flexor Hallucis longus: Unremarkable. Peroneus longus: Unremarkable. Peroneus brevis:Unremarkable. SOFT TISSUES: Diffuse intramuscular and subcutaneous edema. Greater edema seen more distally at the level of the malleoli. 9 millimeter cyst seen dorsal to the 3rd cuneiform. IMPRESSION: Achilles tendon tear with significant separation of fibers. Edema of the medial talar dome without overlying cartilage defect. DATA REPOSITORY:
== END ==
PROVIDERS: PCP Nurse Practitioner Family; Visit Provider Nurse Practitioner Family
DX: S86.011A Strain of right Achilles tendon, initial encounter
CPT/HCPCS: 73721

== ENCOUNTER 2023-12-22 21:16 | Outpatient (REF) | payer OTHER, SELFPAY ==
[2023-12-22 21:29] LABS: Abs Immature Grans 0.04 10^3/uL (0.0-0.06); Absolute Basophil Count 0.06 10^3/uL (0.0-0.2); Absolute Eosinophil Count 0.49 10^3/uL (0.0-0.7); Absolute Lymphocyte Count 2.06 10^3/uL (1.2-3.4); Absolute Monocyte Count 1.26 10^3/uL (0.1-0.8); Basophils % 0.5; Eosinophils % 4.1; HCT 47.8 % (40.0-50.0); HGB 16.1 g/dL (13.5-17.5); Immature Grans % 0.3; Lymphocytes % 17.4; MCH 31.4 pg (27.0-33.0); MCHC 33.7 % (32.0-36.0); MCV 93 fL (80-95); MPV 10.9 fL (8.0-11.0); Monocytes % 10.6; Neutrophils % 67.1; Platelet Count 328 10^3/uL (130-400); RBC 5.12 10^6/uL (4.36-5.78); RDW-SD 44.5 fL; WBC 11.85 10^3/uL (4.4-10.8)
[2023-12-22 21:32] LABS: Absolute Neutrophil Count 7.95 10^3/uL (1.2-6.7)
[2023-12-22 21:46] LABS: Anion Gap 11.5 mmol/L (3-11); BUN 33 mg/dL (7-18); CO2 25.5 mmol/L (21.0-32.0); CREATININE 1.2 mg/dL (0.70-1.30); Calcium 9.1 mg/dL (8.5-10.1); Calculated LDL 128 mg/dL (<100); Chloride 104 mmol/L (98-107); Cholesterol 206 mg/dL (<200); Estimated GFR 69.23 (mL/min/1.73m2); Glucose 92 mg/dL (74-106); HDL Cholesterol 40 mg/dL (40-60); Sodium 141 mmol/L (136-145); Triglyceride 193 mg/dL (<150)
[2023-12-22 22:38] LABS: MRSA PCR Negative (Negative)
== END 2023-12-22 21:17 | disposition home or self-care (01) ==
LOC: LBN 21:16
PROVIDERS: PCP Nurse Practitioner Family; Visit Provider Nurse Practitioner Family
DX: E78.5 Hyperlipidemia, unspecified (principal); Z01.818 Encounter for other preprocedural examination; R73.03 Prediabetes
CPT/HCPCS: 80048; 80061; 87641; 83036; 85025

== ENCOUNTER 2023-12-26 08:47 | Outpatient (CLI) | payer OTHER, SELFPAY ==
--- NOTE | 2023-12-26 08:45 | RT.EKG_ITS ---
APPROVED REPORT Exam: Resting ECG Reason for Exam: Surgery scheduled 12/29/23 Patient Location: O HR:66 bpm ECG Measurements Heart Rate 66 AXIS KS 194 P 39 QRSd 83 QRS 31 QT 386 T -26 QTc 405 Conclusion Sinus rhythm...normal P axis, V-rate 50- 99 Ventricular premature complex...V complex w/ short R-R interval
== END 2023-12-26 08:48 | disposition home or self-care (01) ==
LOC: DI.CM 08:48
PROVIDERS: PCP Nurse Practitioner Family; Visit Provider Nurse Practitioner Family
DX: Z01.818 Encounter for other preprocedural examination (principal)
CPT/HCPCS: 93010

== ENCOUNTER → 2024-03-12 04:13 | Outpatient (CLI) | payer OTHER, SELFPAY ==
--- NOTE | 2024-03-12 08:20 | DI.MRI_ITS ---
Exam(s) MR LOWER JOINT RT WO EXAM: MR LOWER JOINT RT WO CLINICAL HISTORY: Achilles tendon rupture right,strain,s86.019a,s86,011a TECHNIQUE: Multiplanar multisequence MRI was performed without intravenous contrast. COMPARISON: CR XR ANKLE RT COMPLETE from 12/14/2023 MR MR LOWER JOINT RT WO from 12/21/2023 FINDINGS: BONES/JOINTS: No fracture or contusion pattern. Stable area of high signal in the medial talar dome. No disruption of the overlying cortex. The talar dome is smooth. The ankle mortise is maintained. N o joint effusion is present. Small small calcaneal enthesophytes. LIGAMENTS: The tibiofibular and calcaneofibular ligaments are intact. The talofibular ligaments are i ntact. The deltoid ligament is intact. The syndesmosis is unremarkable. Sinus tarsi is normal. MUSCULOTENDINOUS STRUCTURES: Achilles tendon: Disruption of the Achilles tendon with retraction again noted, not changed from prio r. Plantar fascia: Unremarkable. Anterior Extensor tendons: Unremarkable. Posterior Tibialis: Unremarkable. Flexor Digitorum longus: Unremarkable. Flexor Hallucis longus: Unremarkable. Peroneus longus: Unremarkable. Peroneus brevis:Unremarkable. SOFT TISSUES: Edema. A small cyst again noted dorsal to the 3rd cuneiform. IMPRESSION: Stable appearance of Achilles tendon rupture. Stable appearance of area of high signal in the medial talar dome. no new abnormalities. DATA REPOSITORY:
== END ==
PROVIDERS: PCP Nurse Practitioner Family; Visit Provider Podiatrist
DX: S86.011A Strain of right Achilles tendon, initial encounter (principal)
CPT/HCPCS: 73721

== ENCOUNTER 2024-12-27 09:13 | Outpatient (CLI) | payer BC, SELFPAY ==
[2024-12-27 13:06] LABS: Hemoglobin A1C 6.2 % (<5.7)
[2024-12-27 13:14] LABS: Calculated LDL 123 mg/dL (<100); Cholesterol 208 mg/dL (<200); HDL Cholesterol 44 mg/dL (>or=40); Triglyceride 208 mg/dL (<150)
== END 2024-12-27 09:14 | disposition home or self-care (01) ==
LOC: LOS 09:14
PROVIDERS: PCP Nurse Practitioner Family; Visit Provider Nurse Practitioner Family
DX: Z13.1 Encounter for screening for diabetes mellitus (principal); Z13.220 Encounter for screening for lipoid disorders
CPT/HCPCS: 36415; 80061; 83036

== ENCOUNTER 2025-01-24 10:34 | Observation (INO) | payer BC, SELFPAY ==
[2025-01-24] VITALS (19 sets, daily range): BP systolic 132–181; BP diastolic 85–106; PULSE 30–85; RESP 13–25; TEMP 36–36.6; O2SAT 93–98
--- NOTE | 2025-01-24 10:30 | RT.EKG_ITS ---
APPROVED REPORT Exam: Resting ECG Reason for Exam: dizziness Patient Location: E HR:68 bpm ECG Measurements Heart Rate 68 AXIS WA 195 P 37 QRSd 82 QRS 41 QT 426 T 19 QTc 452 Conclusion Sinus rhythm...normal P axis, V-rate 60- 99
[2025-01-24 11:07] LABS: Abs Immature Grans 0.04 10^3/uL (0.0-0.06); Absolute Eosinophil Count 0.29 10^3/uL (0.0-0.7); Absolute Lymphocyte Count 1.57 10^3/uL (1.2-3.4); Absolute Monocyte Count 0.84 10^3/uL (0.1-0.8); Basophils % 0.4 %; Eosinophils % 2.6 %; HCT 46.1 % (40.0-50.0); Immature Grans % 0.4 %; Lymphocytes % 13.9 %; MCH 32.2 pg (27.0-33.0); MCHC 34.7 % (32.0-36.0); MCV 93 fL (80-95); MPV 9.2 fL (8.0-11.0); Monocytes % 7.4 %; Neutrophils % 75.3 %; Platelet Count 275 10^3/uL (130-400); RBC 4.97 10^6/uL (4.36-5.78); RDW 13.4 % (11.8-14.1); RDW-SD 45.8 fL; WBC 11.29 10^3/uL (4.4-10.8)
[2025-01-24 11:08] LABS: Absolute Basophil Count 0.05 10^3/uL (0.0-0.2)
--- NOTE | 2025-01-24 11:15 | DI.CT_ITS ---
Exam(s) CT BRAIN NECK CTA EXAM: CT BRAIN NECK CTA CLINICAL HISTORY: vertigo, mild REGAN. TECHNIQUE: Imaging Protocol: Axial CT angiography was performed with multi-slice acquisition and mu lti-planar and/or 3D reconstructions. CONTRAST MATERIAL: Intravenous: Omnipaque 350 contrast volume:70 mL COMPARISON: CT CT BRAIN NECK CTA from 05/29/2023 FINDINGS: CT Head W/O and W: Ventricles and Extra axial spaces: Normal in size and morphology for the patient's age. Hemorrhage: None. Cerebral parenchyma: No evidence of an acute territorial infarct. Midline shift: None. Brainstem/Cerebellum: Normal. Calvarium: Normal. Visualized Paranasal sinuses/Mastoids: Clear. Soft Tissues: Unremarkable. Enhancement: Unremarkable. CTA Neck W: Common Carotid: Right: No dissection, occlusion or significant stenosis. Mild atherosclerosis seen in the distal com mon carotid artery. Left: No dissection, occlusion or significant stenosis. Mild atherosclerosis seen in the carotid bul b. External Carotid: Right: No occlusion or significant stenosis. Left: No occlusion or significant stenosis. Internal Carotid: Right: No dissection, occlusion or significant stenosis. Left: No dissection, occlusion or significant stenosis. Vertebral Artery: Right: No dissection, occlusion or significant stenosis. Mild atherosclerotic calcification at the o rigin of the right vertebral artery. Left: No dissection, occlusion or significant stenosis. Lung Apices: Normal. Bones: Within normal limits for the patient's age. There is anterior cervical fusion from C4 through C7. Soft Tissues: Normal. Thyroid gland: Unremarkable. CTA Brain W: Internal Carotid Arteries: Mild atherosclerosis in the cavernous portion of the right internal caroti d artery. Left internal carotid artery is unremarkable. No aneurysm, occlusion or significant steno sis is present. Anterior Cerebral Arteries: Right: No aneurysm, occlusion or significant stenosis. Left: No aneurysm, occlusion or significant stenosis. Middle Cerebral Arteries: Right: No aneurysm, occlusion or significant stenosis. Left: No aneurysm, occlusion or significant stenosis. Posterior Cerebral Arteries: Right: No aneurysm, occlusion or significant stenosis. Left: No aneurysm, occlusion or significant stenosis. Vertebral Arteries: Right: No aneurysm, occlusion or significant stenosis. Left: No aneurysm, occlusion or significant stenosis. Basilar Artery: No aneurysm, occlusion or significant stenosis. IMPRESSION: 1. No large vessel occlusion or significant stenosis on the CT angiography of the head. 2. No acute intracranial process. 3. No occlusion or significant stenosis on the CT angiography of the neck. RADIATION DOSE DELIVERED: 2,312.32mGy.cm Total DLP DATA REPOSITORY: All CT scans at this facility are submitted to the National Radiology Data Registry (NRDR) Dose Index Registry (DIR) with the [employer] (A[employer]). RADIATION OPTIMIZATION: All CT scans at this facility use at least one of these dose optimization te chniques: automated exposure control; mA and/or kV adjustment per patient size (includes targeted exa ms where dose is matched to clinical indication); or iterative reconstruction.
--- NOTE | 2025-01-24 11:19 | W.ED.GENAD ---
Discharge Plan Disposition Patient Disposition: Admit to [facility] Condition: Serious Discharge Details Clinical Impression: Hypertension, Vertigo, Headache Admit Date/Time: 01/24/25 14:12 Admit Provider: Denzel Bryant Attending Provider: Denzel Bryant Primary Care Provider: Meir Vega ED Provider: Don Samaniego Discharge Data Discharge Date/Time-TO BE ENTERED AT DEPARTURE: 01/24/25 16:24 HPI General Mode of arrival: ambulatory. Date/Time Provider Initiated Documentation: 01/24/25 10:51. Limitations to Documentation: no limitations. Information obtained by: patient. HPI Narrative: 59-year-old male with multiple medical problems, including positional vertigo, was at physical therapy and leaning back to sit into a leg machine and suddenly felt severe dizziness like he was in a washing machine. Severe symptoms lasted about 2 minutes. He notes similar less severe episodes in the remote past. He had associated severe anxiety and noted his blood pressure did go up when measured by the physical therapy team. Patient notes symptoms significantly improved but still feels a little jittery. Patient denies chest pain. No shortness of breath. He does have mild headache. Related Data Home Medications ?Medication ?Instructions ?Recorded ?Confirmed aspirin 325 mg tablet,delayed 325 mg PO DAILY 04/16/13 01/24/25 release (E.C. Prin) omega-3 fatty acids 500 mg capsule 2 tab PO DAILY 01/31/14 01/24/25 (Fish Oil) inhalational spacing device ##1 02/10/15 01/24/25 (Aerochamber Plus Flow-Vu) magnesium oxide 400 mg (241.3 mg 400 mg PO HS #90 tabs 11/03/20 01/24/25 magnesium) tablet melatonin 10 mg tablet 10 mg PO HS PRN 11/10/21 01/24/25 multivitamin 1 tab PO DAILY 01/11/22 01/24/25 vitamin B complex 1 cap PO BID 01/11/22 01/24/25 cetirizine 10 mg tablet (Zyrtec) 10 mg PO DAILY PRN 11/07/23 01/24/25 albuterol sulfate 90 mcg/actuation 2 puff inhalation Q6H PRN 05/02/24 01/24/25 aerosol inhaler (Ventolin HFA) shortness of breath or wheezing #18 grams chlorthalidone 25 mg tablet 25 mg PO DAILY #90 tabs 06/14/24 01/24/25 gabapentin 100 mg capsule 100 mg PO TID #270 caps 07/11/24 01/24/25 lisinopril 20 mg tablet 20 mg PO DAILY #90 tab-caps 07/11/24 01/24/25 ibuprofen 800 mg tablet (IBU) 800 mg PO Q6H PRN pain #90 tabs 09/07/24 01/24/25 simvastatin 20 mg tablet 20 mg PO QHS #90 tabs 09/10/24 01/24/25 fluticasone fur. 200 mcg-umeclid 1 inh inhalation DAILY #60 ea 12/12/24 01/24/25 62.5 mcg-vilant 25 mcg inhalat.powder (Trelegy Ellipta) tamsulosin 0.4 mg capsule 0.8 mg (2 x 0.4 mg) PO DAILY #180 12/12/24 01/24/25 caps tramadol 100 mg tablet 100 mg PO BID PRN pain #56 tabs 12/12/24 01/24/25 meclizine 12.5 mg tablet 12.5 mg PO TID #30 tabs 01/25/25 Previous Rx's ?Medication ?Instructions ?Recorded magnesium oxide 400 mg (241.3 mg 400 mg PO HS #90 tabs 11/03/20 magnesium) tablet albuterol sulfate 90 mcg/actuation 2 puff inhalation Q6H PRN 05/02/24 aerosol inhaler (Ventolin HFA) shortness of breath or wheezing #18 grams chlorthalidone 25 mg tablet 25 mg PO DAILY #90 tabs 06/14/24 gabapentin 100 mg capsule 100 mg PO TID #270 caps 07/11/24 lisinopril 20 mg tablet 20 mg PO DAILY #90 tab-caps 07/11/24 ibuprofen 800 mg tablet (IBU) 800 mg PO Q6H PRN pain #90 tabs 09/07/24 simvastatin 20 mg tablet 20 mg PO QHS #90 tabs 09/10/24 fluticasone fur. 200 mcg-umeclid 1 inh inhalation DAILY #60 ea 12/12/24 62.5 mcg-vilant 25 mcg inhalat.powder (Trelegy Ellipta) tamsulosin 0.4 mg capsule 0.8 mg (2 x 0.4 mg) PO DAILY #180 12/12/24 caps tramadol 100 mg tablet 100 mg PO BID PRN pain #56 tabs 12/12/24 meclizine 12.5 mg tablet 12.5 mg PO TID #30 tabs 01/25/25 Allergies Allergy/AdvReac Type Severity Reaction Status Date / Time house dust Allergy Other (See Verified 01/24/25 11:10 Comment) pollen extracts Allergy Other (See Verified 01/24/25 11:10 Comment) seasonal Allergy Other (See Uncoded 01/24/25 11:10 Comment) General Stated Complaint: Dizzy/Sync ROMI: 3 Review of Systems All systems reviewed & are unremarkable except as noted in HPI and below Constitutional Constitutional: Denies fever(s) Cardiovascular Cardiovascular: Denies chest pain Exam Const General: cooperative and no acute distress HENMT Head: normocephalic and atraumatic Mouth: moist mucous membranes Eyes Conjunctivae: normal conjunctivae Sclera: normal sclerae EOM: EOM intact bilaterally Neck Neck: trachea midline and supple Resp Auscultation: clear to auscultation bilaterally, no rales, no rhonchi and no wheezes Cardio Rate: regular rate and not tachycardic Rhythm: regular rhythm GI Palpation: soft, not firm, no guarding, no masses, not rigid and nontender Skin General skin exam: no rashes or lesions noted Neuro General: patient alert, patient awake, patient oriented x3 and tone normal Cranial Nerves: CN's II-XI intact bilaterally Cognition: normal cognition Speech: speech normal Motor: strength 5/5 throughout Sensory Exam: no sensory deficits noted Coordination: [id number] test normal, Romberg test normal and other (Normal rapid alternating movements) Other: Hints exam is negative Extrem General: no edema Psych Appearance: grossly normal Mental Status: mental status grossly normal Speech and Movement: speech and movement normal Course Vital Signs Vital signs: Vital Signs Temperature 36.4 C 01/24/25 10:38 Pulse 62 01/24/25 10:38 Respiratory Rate 17 01/24/25 10:38 Blood Pressure 160/95 H 01/24/25 10:38 Pulse Oximetry 98 01/24/25 10:38 Temperature 36.4 C 01/24/25 10:38 Pulse 62 01/24/25 10:38 Respiratory Rate 17 01/24/25 10:38 Blood Pressure 160/95 H 01/24/25 10:38 Pulse Oximetry 98 01/24/25 10:38 Pain Level 4 01/24/25 10:38 Lab/Test Results Lab/Test Results: Laboratory Tests Range/Units 01/24/25 11:00 WBC (4.4-10.8) 10^3/uL 11.29 H RBC (4.36-5.78) 10^6/uL 4.97 Hgb (13.5-17.5) g/dL 16.0 Hct (40.0-50.0) % 46.1 MCV (80-95) fL 93 MCH (27.0-33.0) pg 32.2 MCHC (32.0-36.0) % 34.7 RDW (11.8-14.1) % 13.4 Plt Count (130-400) 10^3/uL 275 MPV (8.0-11.0) fL 9.2 Immature Gran % % 0.4 Neutrophils % % 75.3 Lymphocytes % % 13.9 Monocytes % % 7.4 Eosinophils % % 2.6 Basophils % % 0.4 Nucleated RBC % (0.0-0.3) % 0.0 Absolute Neutrophils (1.2-6.7) 10^3/uL 8.50 H Absolute Lymphocytes (1.2-3.4) 10^3/uL 1.57 Absolute Monocytes (0.1-0.8) 10^3/uL 0.84 H Absolute Eosinophils (0.0-0.7) 10^3/uL 0.29 Absolute Basophils (0.0-0.2) 10^3/uL 0.05 Medical Decision Making 59-year-old male with multiple medical problems including prior history of positional vertigo, here today after severe vertigo experienced when repositioning himself in on a piece of physical therapy equipment. Patient was quite anxious and experienced nausea, diaphoresis and mild headache. Patient is hypertensive here 160/95. He is neurologically intact. Considered arrhythmia. EKG was reviewed and interpreted by me, please report, sinus rhythm 60 bpm, normal axis, nondiagnostic. Considered atypical presentation for ACS. Initial troponin and delta troponin negative unchanged. Consider benign positional vertigo vs central process. CT of the head interpreted by radiology as negative. CTA of the brain and neck interpreted by radiology:1. No large vessel occlusion or significant stenosis on the CT angiography of the head. 2. No acute intracranial process. 3. No occlusion or significant stenosis on the CT angiography of the neck. Labs reviewed and transaminitis is noted. On review of prior labs, this appears to be a chronic problem. May be related to alcohol consumption as patient notes he has 2 cocktails every night. Mild hypomagnesemia noted. 1445 -- Patient was given a dose of meclizine and Tylenol and reassessed. He continues to complain of mild headache and mild vertigo with certain positions. His blood pressure is actually increased to now 181/106. This raises the potential for hypertensive emergency. Patient does note he has taken his blood pressure medication as prescribed this morning. I remain concerned about the potential for posterior CVA and will obtain MRI of the brain. Plan to hospitalize for further observation and treatment of hypertension. I spoke with the hospitalist who will admit the patient. Lab Data Lab results reviewed: Yes I reviewed the patient's lab results. Labs: Laboratory Tests Range/Units 01/24/25 01/24/25 01/24/25 11:00 11:50 14:00 WBC (4.4-10.8) 10^3/uL 11.29 H RBC (4.36-5.78) 10^6/uL 4.97 Hgb (13.5-17.5) g/dL 16.0 Hct (40.0-50.0) % 46.1 MCV (80-95) fL 93 MCH (27.0-33.0) pg 32.2 MCHC (32.0-36.0) % 34.7 RDW (11.8-14.1) % 13.4 Plt Count (130-400) 10^3/uL 275 MPV (8.0-11.0) fL 9.2 Immature Gran % % 0.4 Neutrophils % % 75.3 Lymphocytes % % 13.9 Monocytes % % 7.4 Eosinophils % % 2.6 Basophils % % 0.4 Nucleated RBC % (0.0-0.3) % 0.0 Absolute Neutrophils (1.2-6.7) 10^3/uL 8.50 H Absolute Lymphocytes (1.2-3.4) 10^3/uL 1.57 Absolute Monocytes (0.1-0.8) 10^3/uL 0.84 H Absolute Eosinophils (0.0-0.7) 10^3/uL 0.29 Absolute Basophils (0.0-0.2) 10^3/uL 0.05 Sodium (136-145) mmol/L 139 Potassium (3.5-5.1) mmol/L 3.6 Chloride (98-107) mmol/L 102 Carbon Dioxide (21.0-32.0) mmol/L 28.1 Anion Gap (3-11) mmol/L 8.9 BUN (7-18) mg/dL 19 H Creatinine (0.70-1.30) mg/dL 1.0 Est GFR (CKD-EPI 2020) (mL/min/1.73m2) 85.63 Glucose (74-106) mg/dL 132 H Calcium (8.5-10.1) mg/dL 9.2 Magnesium (1.8-2.4) mg/dL 1.7 L Total Bilirubin (0.2-1.0) mg/dL 0.9 AST (15-37) U/L 59 H ALT (16-63) U/L 105 H Alkaline Phosphatase (46-116) U/L 117 H Troponin I (<or=76) ng/L 11 12 Cancelled Total Protein (6.4-8.2) g/dL 7.2 Albumin (3.4-5.0) g/dL 3.7 Quality:SDOH Health Related Social Needs: No Data to Display PFSH All Active Problems (Updated 01/30/25 @ 11:36 by Don Samaniego MD) Headache (Acute) Vertigo (Acute) Hypertension (Chronic) CAD (coronary artery disease) (Chronic) Stroke (Chronic) Long toenail (Acute) Lumbar radiculitis (Acute) Sacroiliac joint dysfunction of right side (Acute) Postlaminectomy syndrome of lumbar region (Acute) S/P laminectomy (Acute ~05/03/24) [facility] Bilateral lumbar laminectomy L2-3, L3-4, L4-5 with posterior lumbar fusion L5-S1 Erectile dysfunction (Acute) Vertigo (Acute) Contact dermatitis (Acute) Achilles rupture, right (Acute ~11/2023) Achilles tendon tear (Acute) Nail dystrophy (Acute) Foot drop, right (Acute) Low back pain (Acute) Neck pain (Acute) Posterior right side. Chronic allergic rhinitis (Acute) Sciatica (Acute) Peripheral neuropathy (Acute) Personal history of nicotine dependence (Acute) Quit in 2010 Chronic rhinitis (Acute) Asthma-COPD overlap syndrome (Acute) COVID-19 (Acute) 03/03/22 Vaccinated with booster Essential hypertension (Acute 10/29/13) Nocturia (Acute 05/28/16) Obstructive sleep apnea (Acute) CPAP Hyperlipidemia (Acute) Prediabetes (Acute) Elevated liver function tests (Acute) 10/2021: Probable fatty liver syndrome Obesity (Chronic) Medical History Lumbar spondylosis Lumbar radiculopathy Loss of balance Spondylitis, cervical Hypercholesterolemia BPH (benign prostatic hyperplasia) Hypertension Pulmonary air trapping Nicotine dependence in remission Hypogonadism in male (10/30/15) Surgical History History of neck surgery cervical fusion 12/2023 History of back surgery carolyn lumbar laminectomy L2-3,3-4,4-5, with post fusion 05/07/24 S/P T&A (status post tonsillectomy and adenoidectomy) Age 7/8 History of colonoscopy (~09/2020) Rotator Cuff Repair right HERNIA REPAIR X 3 Family History Mother Essential hypertension Hyperlipidemia Depression Father , 79 Diabetes Essential hypertension Heart disease Hyperlipidemia Depression Brother , 34? Essential hypertension Heart disease Hyperlipidemia Maternal Grandfather Heart disease Paternal Grandfather , age 69 Heart disease Maternal Grandmother , age 70 Essential hypertension Heart disease Hyperlipidemia Paternal Grandmother , age 68 Essential hypertension Heart disease Hyperlipidemia Stroke Son Substance abuse Son No problems noted. Daughter No problems noted. Social History Smoking/Tobacco Use Status: Former Tobacco Use tobacco type: cigarettes Quit Date: 09/26/09 Tobacco: How many years used: 29 Quit status: has quit before Second Hand Exposure: Yes Smoking risk assessment performed?: Yes Alcohol Intake: current Alcohol Intake frequency: a few times a week Alcohol type: hard liquor Drug use: Current Sobriety Substance use type: marijuana Counseling given: No Caregiver/Support person: No Household members: spouse Housing: house Do you need help understanding health information?: Never Pets and animals: Yes Pets and animals: cat(s), dog(s) and horse(s) Sexually active: No Do you think of yourself as: straight/heterosexual Current gender identity: male What is your relationship status?: How often do you talk on the phone with friends or family?: three or more times per week How often do you get together with friends or relatives?: once per week How often do you attend caodaism or buddhism services?: decline to answer Do you belong to any clubs or organized social groups?: no Panel score (0-1 are the most socially isolated patients): 1 What type of physical activity do you participate in: none Duration: 60-90 minutes/day Frequency: does not exercise Mirta/Rastafari: Rastafarian Special mirta needs: No Seatbelt use: sometimes Helmet use: Yes Helmet use: always Drive intox or ride w/intox medical delivery driver: No Do you feel safe at home: Yes Do you feel safe in your relationship?: Yes
[2025-01-24] MEDS: Meclizine 25 MG TAB PO (11:24)
[2025-01-24] MEDS: Acetaminophen 325 MG TAB 650 MG PO (11:24)
[2025-01-24 11:25] LABS: ALT 105 U/L (16-63); AST 59 U/L (15-37); Albumin 3.7 g/dL (3.4-5.0); Alkaline Phosphatase 117 U/L (46-116); Anion Gap 8.9 mmol/L (3-11); BUN 19 mg/dL (7-18); Bilirubin, Total 0.9 mg/dL (0.2-1.0); CO2 28.1 mmol/L (21.0-32.0); Calcium 9.2 mg/dL (8.5-10.1); Chloride 102 mmol/L (98-107); Estimated GFR 85.63 (mL/min/1.73m2); Glucose 132 mg/dL (74-106); Magnesium 1.7 mg/dL (1.8-2.4); Potassium 3.6 mmol/L (3.5-5.1); Sodium 139 mmol/L (136-145); Total Protein 7.2 g/dL (6.4-8.2); Troponin I 11 ng/L (<or=76)
[2025-01-24] MEDS: Normal Saline - Diluent 50 ML VIAL IJ (12:02)
[2025-01-24] MEDS: Omnipaque 350 MG/ML 500 ML BTL-Imaging package 70 ML IJ (12:04)
[2025-01-24 12:42] LABS: Troponin I 12 ng/L (<or=76)
--- NOTE | 2025-01-24 13:45 | DI.MRI_ITS ---
Exam(s) MR BRAIN WO EXAM: MR BRAIN WO CLINICAL HISTORY: vertigo, REGAN, HTN. TECHNIQUE: Multiplanar multisequence MRI of the brain was performed. CONTRAST MATERIAL: IV Contrast: ML of Dotarem contrast administered. COMPARISON: CT CT BRAIN NECK CTA from 01/24/2025 FINDINGS: VENTRICLES AND EXTRA AXIAL SPACES: Normal in size and morphology for the patient's age. HEMORRHAGE: None. CEREBRAL PARENCHYMA: No focus of restricted diffusion to suggest acute infarct. No space-occupying le aida identified. No significant white matter changes. BRAINSTEM/CEREBELLUM: Normal. CALVARIUM: Normal. ENHANCEMENT: No suspicious enhancement identified. VISUALIZED PARANASAL SINUSES: Mild mucosal thickening in ethmoid and left maxillary sinus. MASTOIDS: Clear. Orbits: Unremarkable. Pituitary: Not enlarged. Vasculature: Normal flow voids. IMPRESSION: Unremarkable MRI of the brain. DATA REPOSITORY:
--- NOTE | 2025-01-24 13:58 | HPE_ITS ---
Date of service: 01/24/25 Time of Service: 13:58 Assessment and Plan Assessment and plan (1) Vertigo: Status: Acute Assessment and plan: Meclizine PT consult (2) Hypertension: Assessment and plan: Not meeting hypertensive urgency criteria parameters - but as symptoms could point to end organ perfusion disruption - will treat if SBP> 160 with symptoms Otherwise permissive hypertension until MRI results hold home lisinopril for now and resume in AM (3) Hyperlipidemia: Status: Acute Assessment and plan: in 12/2024 LDL 123, TGL 208, and tot chol 208 Discussing statin therapy- outpatient f/u (4) Stroke: Status: Chronic Assessment and plan: CTA brain/ neck and CT head negative MRI was for acute findings Echocardiogram On telemetry (5) CAD (coronary artery disease): Status: Chronic Assessment and plan: On ASA Troponin and EKG negative (6) On deep vein thrombosis (DVT) prophylaxis: Status: Acute Assessment and plan: On LMWH Discussed with Dr. Bryant History of Present Illness History of Present Illness Chief Complaint: dizziness, syncopal Narrative: This 59-year-old male with a PMHx of , hypetension, daily ETOH intake, positional vertigo, presented to the ED s/p severe vertigo episode experienced when repositioning himself during physical therapy on the equipment; reporting experiencing anxiety, nausea, diaphoresis and mild headache. DDx: Stroke/ TIA/ ; ACS/ arrhythmia; vertigo.NIHS negative on arrival, EKG showed SR HR 67 w/o sign of coronary occlusion with negative troponins X2 . Head CT and brain and neck CTA were neagtive for acute intracranial process, occlusion or significant stenosis. Labs were unremarkable except for mild transaminitis which appears chronic and hypomagnesemia at 1.7. The patient received meclizine and APAP inthe ED but ongoing mild REGAN and vertigo. Up trend in BP with max 181/106 but did not take antihypertensive Rx this AM. MRI wasordered and pending and the patient was admitted to the medical surgtical floor with telemetry for Stroke/ TIA workup , elevated blood pressure and vertigo. Full code status confirmed. The patient denied, change in vision, chest pain, hematemesis or other GI symptoms, symptoms, reported resolution of nausea. Review of Systems All systems reviewed & are unremarkable except as noted in HPI and below PFSH All Active Problems (Updated 01/24/25 @ 14:27 by Katty Mcarthur APRN) CAD (coronary artery disease) (Chronic) On deep vein thrombosis (DVT) prophylaxis (Acute) Stroke (Chronic) Long toenail (Acute) Lumbar radiculitis (Acute) Sacroiliac joint dysfunction of right side (Acute) Postlaminectomy syndrome of lumbar region (Acute) S/P laminectomy (Acute ~05/03/24) [facility] Bilateral lumbar laminectomy L2-3, L3-4, L4-5 with posterior lumbar fusion L5-S1 Erectile dysfunction (Acute) Vertigo (Acute) Contact dermatitis (Acute) Achilles rupture, right (Acute ~11/2023) Achilles tendon tear (Acute) Nail dystrophy (Acute) Foot drop, right (Acute) Low back pain (Acute) Neck pain (Acute) Posterior right side. Chronic allergic rhinitis (Acute) Sciatica (Acute) Peripheral neuropathy (Acute) Personal history of nicotine dependence (Acute) Quit in 2010 Chronic rhinitis (Acute) Asthma-COPD overlap syndrome (Acute) COVID-19 (Acute) 03/03/22 Vaccinated with booster Essential hypertension (Acute 10/29/13) Nocturia (Acute 05/28/16) Obstructive sleep apnea (Acute) CPAP Hyperlipidemia (Acute) Prediabetes (Acute) Elevated liver function tests (Acute) 10/2021: Probable fatty liver syndrome Obesity (Chronic) Medical History Lumbar spondylosis Lumbar radiculopathy Loss of balance Spondylitis, cervical Hypercholesterolemia BPH (benign prostatic hyperplasia) Hypertension Pulmonary air trapping Nicotine dependence in remission Hypogonadism in male (10/30/15) Surgical History History of neck surgery cervical fusion 12/2023 History of back surgery carolyn lumbar laminectomy L2-3,3-4,4-5, with post fusion 05/07/24 S/P T&A (status post tonsillectomy and adenoidectomy) Age 7/8 History of colonoscopy (~09/2020) Rotator Cuff Repair right HERNIA REPAIR X 3 Family History Mother Essential hypertension Hyperlipidemia Depression Father , 79 Diabetes Essential hypertension Heart disease Hyperlipidemia Depression Brother , 34? Essential hypertension Heart disease Hyperlipidemia Maternal Grandfather Heart disease Paternal Grandfather , age 69 Heart disease Maternal Grandmother , age 70 Essential hypertension Heart disease Hyperlipidemia Paternal Grandmother , age 68 Essential hypertension Heart disease Hyperlipidemia Stroke Son Substance abuse Son No problems noted. Daughter No problems noted. Social History Smoking/Tobacco Use Status: Former Tobacco Use tobacco type: cigarettes Quit Date: 09/26/09 Tobacco: How many years used: 29 Quit status: has quit before Second Hand Exposure: Yes Smoking risk assessment performed?: Yes Alcohol Intake: current Alcohol Intake frequency: a few times a week Alcohol type: hard liquor Drug use: Current Sobriety Substance use type: marijuana Counseling given: No Caregiver/Support person: No Household members: spouse Housing: house Do you need help understanding health information?: Never Pets and animals: Yes Pets and animals: cat(s), dog(s) and horse(s) Sexually active: No Do you think of yourself as: straight/heterosexual Current gender identity: male What is your relationship status?: How often do you talk on the phone with friends or family?: three or more times per week How often do you get together with friends or relatives?: once per week How often do you attend muslim or confucianism services?: decline to answer Do you belong to any clubs or organized social groups?: no Panel score (0-1 are the most socially isolated patients): 1 What type of physical activity do you participate in: none Duration: 60-90 minutes/day Frequency: does not exercise Mirta/Orthodoxy: Taoism Special mirta needs: No Seatbelt use: sometimes Helmet use: Yes Helmet use: always Drive intox or ride w/intox pharmacy delivery driver: No Do you feel safe at home: Yes Do you feel safe in your relationship?: Yes Meds Allergies and Home Medications Allergies Allergy/AdvReac Type Severity Reaction Status Date / Time house dust Allergy Other (See Verified 01/24/25 11:10 Comment) pollen extracts Allergy Other (See Verified 01/24/25 11:10 Comment) seasonal Allergy Other (See Uncoded 01/24/25 11:10 Comment) Home Medications ?Medication ?Instructions ?Recorded ?Confirmed ?Type aspirin 325 mg tablet,delayed 325 mg PO DAILY 04/16/13 01/24/25 History release (E.C. Prin) omega-3 fatty acids 500 mg capsule 2 tab PO DAILY 01/31/14 01/24/25 History (Fish Oil) inhalational spacing device ##1 02/10/15 01/24/25 History (Aerochamber Plus Flow-Vu) magnesium oxide 400 mg (241.3 mg 400 mg PO HS #90 tabs 11/03/20 01/24/25 Rx magnesium) tablet melatonin 10 mg tablet 10 mg PO HS PRN 11/10/21 01/24/25 History multivitamin 1 tab PO DAILY 01/11/22 01/24/25 History vitamin B complex 1 cap PO BID 01/11/22 01/24/25 History cetirizine 10 mg tablet (Zyrtec) 10 mg PO DAILY PRN 11/07/23 01/24/25 History albuterol sulfate 90 mcg/actuation 2 puff inhalation Q6H PRN 05/02/24 01/24/25 Rx aerosol inhaler (Ventolin HFA) shortness of breath or wheezing #18 grams chlorthalidone 25 mg tablet 25 mg PO DAILY #90 tabs 06/14/24 01/24/25 Rx gabapentin 100 mg capsule 100 mg PO TID #270 caps 07/11/24 01/24/25 Rx lisinopril 20 mg tablet 20 mg PO DAILY #90 tab-caps 07/11/24 01/24/25 Rx ibuprofen 800 mg tablet (IBU) 800 mg PO Q6H PRN pain #90 tabs 09/07/24 01/24/25 Rx simvastatin 20 mg tablet 20 mg PO QHS #90 tabs 09/10/24 01/24/25 Rx fluticasone fur. 200 mcg-umeclid 1 inh inhalation DAILY #60 ea 12/12/24 01/24/25 Rx 62.5 mcg-vilant 25 mcg inhalat.powder (Trelegy Ellipta) tamsulosin 0.4 mg capsule 0.8 mg (2 x 0.4 mg) PO DAILY #180 12/12/24 01/24/25 Rx caps tramadol 100 mg tablet 100 mg PO BID PRN pain #56 tabs 12/12/24 01/24/25 Rx Exam Narrative Exam Narrative: Constitutional The patient is without acute distress HENMT: Facial structures with normal appearance Eyes: Well aligned, intact ROM Neuro:alert and oriented to self, person, place time and situation. No neurological focal deficit, PERRLA on ambient light Resp: Normal respiratory pattern, speaks in full sentences, unlabored breathing, clear lung bilaterally Cardio: regular rhythm, S1, S2, no murmur, GI: Abdomen is not distended, soft and non tender, bowel sounds are present Integumentary: No skin lesions or rash Extremities: moves all 4 ext. Psych: RASS 0, congruent mood and normal affect. Results Labs 01/24/25 11:00 01/24/25 11:00 Labs: Laboratory Results - last 24 hr 01/24/25 01/24/25 01/24/25 11:00 11:50 14:00 WBC 11.29 H RBC 4.97 Hgb 16.0 Hct 46.1 MCV 93 MCH 32.2 MCHC 34.7 RDW 13.4 Plt Count 275 MPV 9.2 Immature Gran % 0.4 Neutrophils % 75.3 Lymphocytes % 13.9 Monocytes % 7.4 Eosinophils % 2.6 Basophils % 0.4 Nucleated RBC % 0.0 Absolute Neutrophils 8.50 H Absolute Lymphocytes 1.57 Absolute Monocytes 0.84 H Absolute Eosinophils 0.29 Absolute Basophils 0.05 Sodium 139 Potassium 3.6 Chloride 102 Carbon Dioxide 28.1 Anion Gap 8.9 BUN 19 H Creatinine 1.0 Est GFR (CKD-EPI 2020) 85.63 Glucose 132 H Calcium 9.2 Magnesium 1.7 L Total Bilirubin 0.9 AST 59 H ALT 105 H Alkaline Phosphatase 117 H Troponin I 11 12 Cancelled Total Protein 7.2 Albumin 3.7 Last Vital Signs Temp 36.4 C 01/24/25 10:38 Pulse 61 01/24/25 13:39 Resp 16 01/24/25 13:39 BP 181/106 H 01/24/25 13:39 Pulse Ox 96 01/24/25 13:39 Time Spent Time spent with Patient: >75 minutes Time was spent: preparing to see the patient(eg.review tests), obtaining and/or reviewing separately otained hiistory, ordering medications,tests, procedures, referring, communicating with other health memory care program resident, indepentently interpreting results, counseling the patient and care coordination
[2025-01-24] MEDS: LORazepam 2 MG/ML VIAL 1 MG IVP (14:08)
--- NOTE | 2025-01-24 15:19 | W.PC.ACHO ---
Registration Status: Primary Language: Preferred Language: ED Information & Data Chief Complaint Dizzy/Sync 01/24/25 13:15 Triage Note pt was at physical therapy 01/24/25 10:38 hen all of the sudden he got dizzy, head ache, nausea abd sweaty. BS 127. Medical / Surgical History (Last Reviewed 01/24/25 @ 13:11 by Don Samaniego MD) Lumbar spondylosis Lumbar radiculopathy Loss of balance Spondylitis, cervical Hypercholesterolemia BPH (benign prostatic hyperplasia) Hypertension Pulmonary air trapping Nicotine dependence in remission Hypogonadism in male (10/30/15) (Last Reviewed 01/24/25 @ 13:11 by Don Samaniego MD) History of neck surgery History of back surgery S/P T&A (status post tonsillectomy and adenoidectomy) History of colonoscopy (~09/2020) Rotator Cuff Repair HERNIA REPAIR Most Recent Vital Signs Temperature 36.4 C 01/24/25 10:38 Pulse 40 L 01/24/25 14:50 Pulse 62 01/24/25 14:50 Respiratory Rate 15 01/24/25 14:50 Respiratory Effort Normal, Non-Labored 01/24/25 12:39 Respiratory Depth Normal 01/24/25 12:39 Respiratory Pattern Normal 01/24/25 12:39 Blood Pressure 160/92 H 01/24/25 14:49 Blood Pressure Mean 109 01/24/25 14:49 Blood Pressure Position Sitting 01/24/25 13:39 Pulse Oximetry 95 01/24/25 14:50 Oxygen Delivery Method Room Air 01/24/25 13:39 Oxygen Flow Rate 0 01/24/25 13:39 Pain Level 4 01/24/25 10:38 Allergies house dust Allergy (Verified 01/24/25 11:10) Other (See Comment) Allergies pollen extracts Allergy (Verified 01/24/25 11:10) Other (See Comment) allergies seasonal Allergy (Uncoded 01/24/25 11:10) Other (See Comment) allergies Active Medications Generic Name Dose Route Start Last Admin Trade Name Freq PRN Reason Stop Dose Admin Iohexol 70 ml 01/24/25 12:15 01/24/25 12:04 Omnipaque 350 Mg/Ml 500 Ml Btl-Imaging Package IJ 02/23/25 23:59 70 ml DIRECTED CASIMIRO Administration Sodium Chloride 50 ml 01/24/25 12:15 01/24/25 12:02 Normal Saline - Diluent 50 Ml Vial IJ 50 ml .FOR DI USE CASIMIRO Administration IV IV Catheter Type [Left Saline Lock Antecubital] IV Catheter Gauge [Left 18 Antecubital] Diagnostics 01/24/25 01/24/25 01/24/25 Range/Units 14:00 11:50 11:00 WBC 11.29 H (4.4-10.8) 10^3/uL RBC 4.97 (4.36-5.78) 10^6/uL Hgb 16.0 (13.5-17.5) g/dL Hct 46.1 (40.0-50.0) % MCV 93 (80-95) fL MCH 32.2 (27.0-33.0) pg MCHC 34.7 (32.0-36.0) % RDW 13.4 (11.8-14.1) % Plt Count 275 (130-400) 10^3/uL MPV 9.2 (8.0-11.0) fL Immature Gran % 0.4 % Neutrophils % 75.3 % Lymphocytes % 13.9 % Monocytes % 7.4 % Eosinophils % 2.6 % Basophils % 0.4 % Nucleated RBC % 0.0 (0.0-0.3) % Absolute Neutrophils 8.50 H (1.2-6.7) 10^3/uL Absolute Lymphocytes 1.57 (1.2-3.4) 10^3/uL Absolute Monocytes 0.84 H (0.1-0.8) 10^3/uL Absolute Eosinophils 0.29 (0.0-0.7) 10^3/uL Absolute Basophils 0.05 (0.0-0.2) 10^3/uL Sodium 139 (136-145) mmol/L Potassium 3.6 (3.5-5.1) mmol/L Chloride 102 (98-107) mmol/L Carbon Dioxide 28.1 (21.0-32.0) mmol/L Anion Gap 8.9 (3-11) mmol/L BUN 19 H (7-18) mg/dL Creatinine 1.0 (0.70-1.30) mg/dL Est GFR (CKD-EPI 2020) 85.63 (mL/min/1.73m2) Glucose 132 H (74-106) mg/dL Calcium 9.2 (8.5-10.1) mg/dL Magnesium 1.7 L (1.8-2.4) mg/dL Total Bilirubin 0.9 (0.2-1.0) mg/dL AST 59 H (15-37) U/L ALT 105 H (16-63) U/L Alkaline Phosphatase 117 H (46-116) U/L Troponin I Cancelled 12 11 (<or=76) ng/L Total Protein 7.2 (6.4-8.2) g/dL Albumin 3.7 (3.4-5.0) g/dL [id number] Documentation Fingerstick Glucose Start: 01/24/25 10:53 Freq: Status: Active Protocol: Activity Type Activity Date Activity User E-sign Co-sign Detail Recorded Client Recorded Date Recorded By Document 01/24/25 10:42 BKG DAEMON(3) NVT-BG05 01/24/25 10:53 BKG DAEMON(4) Intake and Output - 24 Hour Total 01/24/25 10:34 thru 01/24/25 10:38 Weight 102.058 kg Falls Risk Assessment History of Falls No History 01/24/25 11:04 Contributing Factors No Factors 01/24/25 11:04 Ambulatory Aids Independent 01/24/25 11:04 Tubes/Lines None 01/24/25 11:04 Gait Evaluation No gait disturbance 01/24/25 11:04 Cognition No cognitive impairment 01/24/25 11:04 Fall Total Score 0 01/24/25 11:04 Level of Risk Standard/Low Risk 01/24/25 11:04 Problems (Last Reviewed 01/24/25 @ 13:11 by Don Samaniego MD) CAD (coronary artery disease) (Chronic) On deep vein thrombosis (DVT) prophylaxis (Acute) Stroke (Chronic) Vertigo (Acute) Hyperlipidemia (Acute) v v v v v v v v v Sending and/or Receiving Nurses: Please use comment section below to note any information pertinent to the patient hand-off not included above. Information / Comments: Report received from: attempted first call for report from Angelina RN, RN busy and will call back
--- NOTE | 2025-01-24 15:30 | PT.INNT ---
PT Notes Visit Reasons: from CM/ dizzy, nausea In transit from ED to med surg as of 3:30 PM. Will monitor arrival and perform ordered PT evaluation later today or first thing tomorrow morning.
--- NOTE | 2025-01-24 16:02 | W.PC.ACHO ---
Registration Status: Primary Language: Preferred Language: ED Information & Data Chief Complaint Dizzy/Sync 01/24/25 13:15 Triage Note pt was at physical therapy 01/24/25 10:38 hen all of the sudden he got dizzy, head ache, nausea abd sweaty. BS 127. Medical / Surgical History (Last Reviewed 01/24/25 @ 13:11 by Don Samaniego MD) Lumbar spondylosis Lumbar radiculopathy Loss of balance Spondylitis, cervical Hypercholesterolemia BPH (benign prostatic hyperplasia) Hypertension Pulmonary air trapping Nicotine dependence in remission Hypogonadism in male (10/30/15) (Last Reviewed 01/24/25 @ 13:11 by Don Samaniego MD) History of neck surgery History of back surgery S/P T&A (status post tonsillectomy and adenoidectomy) History of colonoscopy (~09/2020) Rotator Cuff Repair HERNIA REPAIR Most Recent Vital Signs Temperature 36.4 C 01/24/25 10:38 Pulse 40 L 01/24/25 14:50 Pulse 62 01/24/25 14:50 Respiratory Rate 15 01/24/25 14:50 Respiratory Effort Normal, Non-Labored 01/24/25 12:39 Respiratory Depth Normal 01/24/25 12:39 Respiratory Pattern Normal 01/24/25 12:39 Blood Pressure 160/92 H 01/24/25 14:49 Blood Pressure Mean 109 01/24/25 14:49 Blood Pressure Position Sitting 01/24/25 13:39 Pulse Oximetry 95 01/24/25 14:50 Oxygen Delivery Method Room Air 01/24/25 13:39 Oxygen Flow Rate 0 01/24/25 13:39 Pain Level 4 01/24/25 10:38 Allergies house dust Allergy (Verified 01/24/25 11:10) Other (See Comment) Allergies pollen extracts Allergy (Verified 01/24/25 11:10) Other (See Comment) allergies seasonal Allergy (Uncoded 01/24/25 11:10) Other (See Comment) allergies Active Medications Generic Name Dose Route Start Last Admin Trade Name Freq PRN Reason Stop Dose Admin Iohexol 70 ml 01/24/25 12:15 01/24/25 12:04 Omnipaque 350 Mg/Ml 500 Ml Btl-Imaging Package IJ 02/23/25 23:59 70 ml DIRECTED CASIMIRO Administration Sodium Chloride 50 ml 01/24/25 12:15 01/24/25 12:02 Normal Saline - Diluent 50 Ml Vial IJ 50 ml .FOR DI USE CASIMIRO Administration IV IV Catheter Type [Left Saline Lock Antecubital] IV Catheter Gauge [Left 18 Antecubital] Diagnostics 01/24/25 01/24/25 01/24/25 Range/Units 14:00 11:50 11:00 WBC 11.29 H (4.4-10.8) 10^3/uL RBC 4.97 (4.36-5.78) 10^6/uL Hgb 16.0 (13.5-17.5) g/dL Hct 46.1 (40.0-50.0) % MCV 93 (80-95) fL MCH 32.2 (27.0-33.0) pg MCHC 34.7 (32.0-36.0) % RDW 13.4 (11.8-14.1) % Plt Count 275 (130-400) 10^3/uL MPV 9.2 (8.0-11.0) fL Immature Gran % 0.4 % Neutrophils % 75.3 % Lymphocytes % 13.9 % Monocytes % 7.4 % Eosinophils % 2.6 % Basophils % 0.4 % Nucleated RBC % 0.0 (0.0-0.3) % Absolute Neutrophils 8.50 H (1.2-6.7) 10^3/uL Absolute Lymphocytes 1.57 (1.2-3.4) 10^3/uL Absolute Monocytes 0.84 H (0.1-0.8) 10^3/uL Absolute Eosinophils 0.29 (0.0-0.7) 10^3/uL Absolute Basophils 0.05 (0.0-0.2) 10^3/uL Sodium 139 (136-145) mmol/L Potassium 3.6 (3.5-5.1) mmol/L Chloride 102 (98-107) mmol/L Carbon Dioxide 28.1 (21.0-32.0) mmol/L Anion Gap 8.9 (3-11) mmol/L BUN 19 H (7-18) mg/dL Creatinine 1.0 (0.70-1.30) mg/dL Est GFR (CKD-EPI 2020) 85.63 (mL/min/1.73m2) Glucose 132 H (74-106) mg/dL Calcium 9.2 (8.5-10.1) mg/dL Magnesium 1.7 L (1.8-2.4) mg/dL Total Bilirubin 0.9 (0.2-1.0) mg/dL AST 59 H (15-37) U/L ALT 105 H (16-63) U/L Alkaline Phosphatase 117 H (46-116) U/L Troponin I Cancelled 12 11 (<or=76) ng/L Total Protein 7.2 (6.4-8.2) g/dL Albumin 3.7 (3.4-5.0) g/dL [id number] Documentation Fingerstick Glucose Start: 01/24/25 10:53 Freq: Status: Active Protocol: Activity Type Activity Date Activity User E-sign Co-sign Detail Recorded Client Recorded Date Recorded By Document 01/24/25 10:42 BKG DAEMON(7) NVT-BG05 01/24/25 10:53 BKG DAEMON(8) Intake and Output - 24 Hour Total 01/24/25 10:34 thru 01/24/25 10:38 Weight 102.058 kg Falls Risk Assessment History of Falls No History 01/24/25 11:04 Contributing Factors No Factors 01/24/25 11:04 Ambulatory Aids Independent 01/24/25 11:04 Tubes/Lines None 01/24/25 11:04 Gait Evaluation No gait disturbance 01/24/25 11:04 Cognition No cognitive impairment 01/24/25 11:04 Fall Total Score 0 01/24/25 11:04 Level of Risk Standard/Low Risk 01/24/25 11:04 Problems (Last Reviewed 01/24/25 @ 13:11 by Don Samaniego MD) CAD (coronary artery disease) (Chronic) On deep vein thrombosis (DVT) prophylaxis (Acute) Stroke (Chronic) Vertigo (Acute) Hyperlipidemia (Acute) v v v v v v v v v Sending and/or Receiving Nurses: Please use comment section below to note any information pertinent to the patient hand-off not included above. Information / Comments: Report received from: attempted another call to Angelina ROSA, RN is busy on another phone call
--- NOTE | 2025-01-24 16:20 | W.PC.ACHO ---
Registration Status: Primary Language: Preferred Language: ED Information & Data Chief Complaint Dizzy/Sync 01/24/25 13:15 Triage Note pt was at physical therapy 01/24/25 10:38 hen all of the sudden he got dizzy, head ache, nausea abd sweaty. BS 127. Medical / Surgical History (Last Reviewed 01/24/25 @ 13:11 by Don Samaniego MD) Lumbar spondylosis Lumbar radiculopathy Loss of balance Spondylitis, cervical Hypercholesterolemia BPH (benign prostatic hyperplasia) Hypertension Pulmonary air trapping Nicotine dependence in remission Hypogonadism in male (10/30/15) (Last Reviewed 01/24/25 @ 13:11 by Don Samaniego MD) History of neck surgery History of back surgery S/P T&A (status post tonsillectomy and adenoidectomy) History of colonoscopy (~09/2020) Rotator Cuff Repair HERNIA REPAIR Most Recent Vital Signs Temperature 36.4 C 01/24/25 10:38 Pulse 40 L 01/24/25 14:50 Pulse 62 01/24/25 14:50 Respiratory Rate 15 01/24/25 14:50 Respiratory Effort Normal, Non-Labored 01/24/25 12:39 Respiratory Depth Normal 01/24/25 12:39 Respiratory Pattern Normal 01/24/25 12:39 Blood Pressure 160/92 H 01/24/25 14:49 Blood Pressure Mean 109 01/24/25 14:49 Blood Pressure Position Sitting 01/24/25 13:39 Pulse Oximetry 95 01/24/25 14:50 Oxygen Delivery Method Room Air 01/24/25 13:39 Oxygen Flow Rate 0 01/24/25 13:39 Pain Level 4 01/24/25 10:38 Allergies house dust Allergy (Verified 01/24/25 11:10) Other (See Comment) Allergies pollen extracts Allergy (Verified 01/24/25 11:10) Other (See Comment) allergies seasonal Allergy (Uncoded 01/24/25 11:10) Other (See Comment) allergies Active Medications Generic Name Dose Route Start Last Admin Trade Name Freq PRN Reason Stop Dose Admin Iohexol 70 ml 01/24/25 12:15 01/24/25 12:04 Omnipaque 350 Mg/Ml 500 Ml Btl-Imaging Package IJ 02/23/25 23:59 70 ml DIRECTED CASIMIRO Administration Sodium Chloride 50 ml 01/24/25 12:15 01/24/25 12:02 Normal Saline - Diluent 50 Ml Vial IJ 50 ml .FOR DI USE CASIMIRO Administration IV IV Catheter Type [Left Saline Lock Antecubital] IV Catheter Gauge [Left 18 Antecubital] Diagnostics 01/24/25 01/24/25 01/24/25 Range/Units 14:00 11:50 11:00 WBC 11.29 H (4.4-10.8) 10^3/uL RBC 4.97 (4.36-5.78) 10^6/uL Hgb 16.0 (13.5-17.5) g/dL Hct 46.1 (40.0-50.0) % MCV 93 (80-95) fL MCH 32.2 (27.0-33.0) pg MCHC 34.7 (32.0-36.0) % RDW 13.4 (11.8-14.1) % Plt Count 275 (130-400) 10^3/uL MPV 9.2 (8.0-11.0) fL Immature Gran % 0.4 % Neutrophils % 75.3 % Lymphocytes % 13.9 % Monocytes % 7.4 % Eosinophils % 2.6 % Basophils % 0.4 % Nucleated RBC % 0.0 (0.0-0.3) % Absolute Neutrophils 8.50 H (1.2-6.7) 10^3/uL Absolute Lymphocytes 1.57 (1.2-3.4) 10^3/uL Absolute Monocytes 0.84 H (0.1-0.8) 10^3/uL Absolute Eosinophils 0.29 (0.0-0.7) 10^3/uL Absolute Basophils 0.05 (0.0-0.2) 10^3/uL Sodium 139 (136-145) mmol/L Potassium 3.6 (3.5-5.1) mmol/L Chloride 102 (98-107) mmol/L Carbon Dioxide 28.1 (21.0-32.0) mmol/L Anion Gap 8.9 (3-11) mmol/L BUN 19 H (7-18) mg/dL Creatinine 1.0 (0.70-1.30) mg/dL Est GFR (CKD-EPI 2020) 85.63 (mL/min/1.73m2) Glucose 132 H (74-106) mg/dL Calcium 9.2 (8.5-10.1) mg/dL Magnesium 1.7 L (1.8-2.4) mg/dL Total Bilirubin 0.9 (0.2-1.0) mg/dL AST 59 H (15-37) U/L ALT 105 H (16-63) U/L Alkaline Phosphatase 117 H (46-116) U/L Troponin I Cancelled 12 11 (<or=76) ng/L Total Protein 7.2 (6.4-8.2) g/dL Albumin 3.7 (3.4-5.0) g/dL [facility] Documentation Fingerstick Glucose Start: 01/24/25 10:53 Freq: Status: Active Protocol: Activity Type Activity Date Activity User E-sign Co-sign Detail Recorded Client Recorded Date Recorded By Document 01/24/25 10:42 BKG DAEMON(10) NVT-BG05 01/24/25 10:53 BKG DAEMON(10) Intake and Output - 24 Hour Total 01/24/25 10:34 thru 01/24/25 10:38 Weight 102.058 kg Falls Risk Assessment History of Falls No History 01/24/25 11:04 Contributing Factors No Factors 01/24/25 11:04 Ambulatory Aids Independent 01/24/25 11:04 Tubes/Lines None 01/24/25 11:04 Gait Evaluation No gait disturbance 01/24/25 11:04 Cognition No cognitive impairment 01/24/25 11:04 Fall Total Score 0 01/24/25 11:04 Level of Risk Standard/Low Risk 01/24/25 11:04 Problems (Last Reviewed 01/24/25 @ 13:11 by Don Samaniego MD) CAD (coronary artery disease) (Chronic) On deep vein thrombosis (DVT) prophylaxis (Acute) Stroke (Chronic) Vertigo (Acute) Hyperlipidemia (Acute) v v v v v v v v v Sending and/or Receiving Nurses: Please use comment section below to note any information pertinent to the patient hand-off not included above. Information / Comments: Report received from: report received from Angelina ROSA
[2025-01-24] MEDS: Gabapentin 100 MG CAP PO ×2 (16:58→20:14)
[2025-01-24] MEDS: traMADol 50 MG TAB 100 MG PO (16:59)
--- NOTE | 2025-01-24 17:50 | NUR.NOTE ---
patient admitted from ER for stroke r/o, MRI/CT head negative, pt reports some mild dizziness but no other symptoms at this time. Patient AxOx4, VSS, BPs have improved since ER, ambulates independently with cane, tolerating PO, BM this AM per pt report, voids spontaneously, oriented to room and POC, pending echo, NSR on telemetry. Nursing Note:
[2025-01-24] MEDS: Melatonin 3 MG TAB 9 MG PO (20:13)
[2025-01-24] MEDS: Simvastatin 20 MG TAB PO (20:13)
[2025-01-24] MEDS: Budesonide/Formoterol 160/4.5 6 GM 60 PUFF INH IH (20:14)
[2025-01-24] MEDS: Normal Saline Flush 10 ML SYR IVP (20:14)
[2025-01-24] MEDS: Magnesium Oxide 400 MG TAB PO (20:14)
[2025-01-24] MEDS: Meclizine 12.5 MG TAB PO (20:15)
[2025-01-24] MEDS: Tamsulosin 0.4 MG CAPCR 0.8 MG PO (20:15)
[2025-01-25 02:54] VITALS: BP 129/82; PULSE 58; RESP 20; TEMP 36.3; O2SAT 98
[2025-01-25 06:26] LABS: Abs Immature Grans 0.04 10^3/uL (0.0-0.06); Absolute Basophil Count 0.05 10^3/uL (0.0-0.2); Absolute Eosinophil Count 0.36 10^3/uL (0.0-0.7); Absolute Lymphocyte Count 2.01 10^3/uL (1.2-3.4); Absolute Monocyte Count 0.85 10^3/uL (0.1-0.8); Absolute Neutrophil Count 7.34 10^3/uL (1.2-6.7); Basophils % 0.5 %; Eosinophils % 3.4 %; HCT 45.1 % (40.0-50.0); HGB 15.3 g/dL (13.5-17.5); Immature Grans % 0.4 %; Lymphocytes % 18.9 %; MCH 31.8 pg (27.0-33.0); MCHC 33.9 % (32.0-36.0); MCV 94 fL (80-95); MPV 9.5 fL (8.0-11.0); Neutrophils % 68.8 %; Platelet Count 256 10^3/uL (130-400); RBC 4.81 10^6/uL (4.36-5.78); RDW 13.6 % (11.8-14.1); RDW-SD 46.8 fL; WBC 10.65 10^3/uL (4.4-10.8)
[2025-01-25 07:01] LABS: ALT 93 U/L (16-63); AST 45 U/L (15-37); Albumin 3.2 g/dL (3.4-5.0); Alkaline Phosphatase 98 U/L (46-116); Anion Gap 8.3 mmol/L (3-11); BUN 21 mg/dL (7-18); Bilirubin, Total 0.6 mg/dL (0.2-1.0); CO2 28.7 mmol/L (21.0-32.0); CREATININE 1.1 mg/dL (0.70-1.30); Calcium 8.8 mg/dL (8.5-10.1); Chloride 103 mmol/L (98-107); Estimated GFR 76.37 (mL/min/1.73m2); Glucose 129 mg/dL (74-106); Potassium 3.5 mmol/L (3.5-5.1); Sodium 140 mmol/L (136-145); Total Protein 6.5 g/dL (6.4-8.2)
[2025-01-25 07:31] VITALS: BP 143/94; PULSE 57; RESP 16; TEMP 36.5; O2SAT 92
[2025-01-25] MEDS: Meclizine 12.5 MG TAB PO ×2 (07:39→13:54)
[2025-01-25] MEDS: Lisinopril 20 MG TAB PO (07:40)
[2025-01-25] MEDS: Vitamins B Comp w/C TAB 1 TAB PO (07:40)
[2025-01-25] MEDS: Multivitamin TAB 1 TAB PO (07:40)
[2025-01-25] MEDS: Omega-3 Fatty Acids 1000 MG CAP PO (07:40)
[2025-01-25] MEDS: Chlorthalidone 25 MG TAB PO (07:40)
[2025-01-25] MEDS: Aspirin E.C. 325 MG TABEC PO (07:40)
[2025-01-25] MEDS: Gabapentin 100 MG CAP PO ×2 (07:40→13:54)
[2025-01-25] MEDS: Normal Saline Flush 10 ML SYR IVP (07:41)
[2025-01-25] MEDS: Budesonide/Formoterol 160/4.5 6 GM 60 PUFF INH IH (08:27)
[2025-01-25] MEDS: Tiotropium Bromide-Respimat 10 PUFF INH 2 PUFF IH (08:28)
[2025-01-25] MEDS: traMADol 50 MG TAB 100 MG PO (10:06)
--- NOTE | 2025-01-25 10:30 | DI.US_ITS ---
APPROVED REPORT EXAM: Comprehensive 2D, Doppler, and color-flow Echocardiogram Patient Location: In-Patient Room/Bed: 225 Components Engineer: Lewis Sharp RDCS (AE) Indications: TIA Other Information Study Quality: Adequate. Technically limited study due to body habitus. Conclusion Mild concentric left ventricular hypertrophy. Ejection fraction is 60%. Wall motion is normal Normal right ventricular size and function Both atria are normal in size There are no structural valvular abnormalities Mild mitral regurgitation Wall motion Left Ventricle The left ventricle is normal size. The left ventricular systolic function is normal. The left ventric ular ejection fraction is within the normal range. Mild concentric left ventricular hypertrophy. Ther e is normal LV segmental wall motion. There is no ventricular septal defect visualized. LVEF is 60%. Right Ventricle The right ventricle is normal size. The right ventricular systolic function is normal. Atria The left atrium size is normal. The right atrium size is normal. The interatrial septum is intact wit h no evidence for an atrial septal defect. Aortic Valve The aortic valve is normal in structure. There is no aortic valvular stenosis. No aortic regurgitatio n is present. Mitral Valve The mitral valve is normal in structure. No evidence of mitral valve stenosis. Mild mitral regurgitat ion. Tricuspid Valve The tricuspid valve is normal in structure. There is no tricuspid valve stenosis. Trace tricuspid reg urgitation. Pulmonic Valve The pulmonary valve is normal in structure. There is no pulmonic valvular stenosis. There is no pulmo heather valvular regurgitation. Great Vessels The aortic root is normal in size. The ascending aorta is normal in size. Aortic arch is not well vis ualized. IVC is normal in size and collapses >50% with inspiration. Pericardium There is no pericardial effusion. 2D Dimensions IVSD d PLAX 1.41 cm M: 0.6-1.2 Ao Root d 2.54 cm M: 3.1 - 3.7 LVPW d PLAX 1.27 cm M: 0.6 - 1.2 LVID d PLAX 4.23 cm M: 4.2 - 5.8 LVDs 2.90 cm M: 2.5 - 4.0 LV EF Teichholz 59.7 % FS 31.44 % LV EDV (Teich) 79.8 mL LV ESV (Teich) 32.1 mL Stroke Vol Index (Teich) 22.35 M-Mode TAPSE 2.40 cm (M/F) >1.7 Auto EF LV EDV A4C 87.9 mL LV EDV A2C 73.5 mL LV EDV BP 80.4 mL LV ESV A4C 36.0 mL LV ESV A2C 27.6 mL LV ESV BP 30.8 mL LVEF(%) A4C 59.0 % LVEF(%) A2C 62.4 % LVEF(%) BP 61.7 % LV SV A4C 51.9 ml LV SV A2C 45.9 ml LV SV BP 49.6 ml LV CO A4C 4.1 L/min LV CO A2C 3.8 L/min LV CO BP 4.0 L/min HR A4C 78.77 BPM HR A2C 83.14 BPM LV EDV Index (BP) LA Volume LA Length A4C 5.0 cm LA Length A2C 2.9 cm LA Area A4C s 7.56 cm2 LA Area A2C s 7.82 cm2 LA Vol A4C A-L 9.63 mL LA Vol A2C A-L 17.75 mL LA Vol Biplane A-L 17.2 mL LA Vol/BSA A4C A-L LA Vol/BSA A2C A-L LA Vol/BSA BP A-L 8.1 mL/m2 LA Vol A4C MOD 9.5 mL LA Vol A2C MOD 16.7 mL LA Vol BP MOD 16.5 mL RA Volume RA Area A4C 8.5 cm2 RA ESV A4C (A-L) 14.7mL RA Vol/BSA A4C A-L RA Length A4C 4.2 cm RA ESV A4C (MOD) 13.6mL LV Diastology MV E' medial 0.080 (>0.07 m/s) MV E Vmax 0.62 (0.4-1.3 m/s) MV E/E' MED 7.67 (<14) MV A Vmax 0.60 (0.4-1.3 m/s) MV E' lateral 0.079 (>0.1 m/s) E/A Ratio 1.0 MV E/E' LAT 7.76 (<14) MV E' Average 0.080 m/s MV E/E'(average) 7.71 Aortic Valve AoV Vmax 1.26 m/s LVOT Vmax 1.13 m/s AoV Peak Grad 6.3 mmHg LVOT Peak Grad 5.1 mmHg AoV Area (Vmax) 2.43 cm2 LVOT VTI 0.218 m AoV VTI 0.259 m LVOT Mean Grad 2.9 mmHg AoV Mean Dante. 0.87 m/s LVOT SV 58.98 mL AoV Mean Grad 3.5 mmHg LVOT Diam s 1.85 cm AoV Area (VTI) 2.27 cm2 AV Regurg Peak Gr. 6.34 mmHg Velocity Ratio 0.90 Mitral Valve MV DT 211 (160-240 msec) Pulmonary Valve PV Vmax 1.40 (0.5-1.5 m/s) RVOT Vmax 0.80 m/s PV Peak Grad 8.4 mmHg RVOT Peak Gr. 2.6 mmHg PV Mean Dante 0.92 m/s RVOT VTI 0.167 m PV Mean Grad 4.1 mmHg RVOT Mean Gr. 1.4 mmHg Tricuspid Valve TV S' 0.17 m/s
--- NOTE | 2025-01-25 11:15 | PDOC.CMDIS ---
Date of service: 01/25/25 Time of Service: 11:15 LACE Index Scoring Tool Questions: Length of Stay (in days): 1 Was the patient admitted via the E.D.?: Yes E.D. Visits: 1 Answers: Total Score: 5 Risk of Readmission: Low Risk Care Management Discharge Plan Reason for Hospitalization: Syncope, Dizziness Discharge Plan: Mitch is discharged home via private vehicle with family. He will follow up with his PCP and discharge plan of care as directed. No new services are ordered prior to discharge. Patient/Family Education Needs: Review discharge instructions and plan to follow up as an outpatient, discuss ask me three. SDOH Health Related Social Needs: No Data to Display
--- NOTE | 2025-01-25 11:18 | PDOC.CMIN ---
Date of service: 01/25/25 Time of Service: 11:19 Care Management Initial Assmt Advance Directives Advance Directives: Do you have an Advance Directive: N 08/03/24 15:23 AD On File at [facility]: N 08/03/24 15:23 Date Asked 01/24/25 01/24/25 11:01 AD Date Reviewed COLST On File at [facility] COLST Date Scanned Code Status Resuscitation Status Full Code Care Team Visit Care Team Role Provider Type Katty Mcarthur APRN MD [facility] STAFF PHYSICIAN Meir Vega NP Primary Care Provider NURSE PRACTITIONER InPatient Robert Bhagatkristy Other Providers OTHER Don Samaniego MD Emergency Provider [facility] STAFF PHYSICIAN Denzel Bryant MD Admit Provider [facility] STAFF PHYSICIAN Attending Provider Social Determinants of Health Screening Social Determinants of health last assessed in clinic: 01/24/25 Will the Patient Participate in the Screening?: Declined to provide Do you worry about having a steady place to live?: no Problems where you live: no known problems In the past 12 months, have you had to go without electric, gas, oil or water in your home?: no Has lack of transportation kept you from medical appointments or from doing things needed for daily living?: no Has anyone in your life made you feel unsafe or unsupported?: no How hard is it for you to pay for the very basics like food, housing, medical care, and heating? Would you say it is:: Not hard at all Do you want help finding or keeping work or a job?: I do not need or want help If for any reason you need help with day-to-day activities such as bathing, preparing meals, shopping, managing finances, etc., do you get the help you need?: I don?t need any help How often do you feel lonely or isolated from those around you?: Never Do you speak a language other than Divehi at home?: No Does the patient want assistance with any of the above?: No PFSH All Active Problems (Updated 01/24/25 @ 14:27 by Katty Mcarthur APRN) CAD (coronary artery disease) (Chronic) On deep vein thrombosis (DVT) prophylaxis (Acute) Stroke (Chronic) Long toenail (Acute) Lumbar radiculitis (Acute) Sacroiliac joint dysfunction of right side (Acute) Postlaminectomy syndrome of lumbar region (Acute) S/P laminectomy (Acute ~05/03/24) [facility] Bilateral lumbar laminectomy L2-3, L3-4, L4-5 with posterior lumbar fusion L5-S1 Erectile dysfunction (Acute) Vertigo (Acute) Contact dermatitis (Acute) Achilles rupture, right (Acute ~11/2023) Achilles tendon tear (Acute) Nail dystrophy (Acute) Foot drop, right (Acute) Low back pain (Acute) Neck pain (Acute) Posterior right side. Chronic allergic rhinitis (Acute) Sciatica (Acute) Peripheral neuropathy (Acute) Personal history of nicotine dependence (Acute) Quit in 2010 Chronic rhinitis (Acute) Asthma-COPD overlap syndrome (Acute) COVID-19 (Acute) 03/03/22 Vaccinated with booster Essential hypertension (Acute 10/29/13) Nocturia (Acute 05/28/16) Obstructive sleep apnea (Acute) CPAP Hyperlipidemia (Acute) Prediabetes (Acute) Elevated liver function tests (Acute) 10/2021: Probable fatty liver syndrome Obesity (Chronic) Medical History Lumbar spondylosis Lumbar radiculopathy Loss of balance Spondylitis, cervical Hypercholesterolemia BPH (benign prostatic hyperplasia) Hypertension Pulmonary air trapping Nicotine dependence in remission Hypogonadism in male (10/30/15) Surgical History History of neck surgery cervical fusion 12/2023 History of back surgery carolyn lumbar laminectomy L2-3,3-4,4-5, with post fusion 05/07/24 S/P T&A (status post tonsillectomy and adenoidectomy) Age 7/8 History of colonoscopy (~09/2020) Rotator Cuff Repair right HERNIA REPAIR X 3 Family History Mother Essential hypertension Hyperlipidemia Depression Father , 79 Diabetes Essential hypertension Heart disease Hyperlipidemia Depression Brother , 34? Essential hypertension Heart disease Hyperlipidemia Maternal Grandfather Heart disease Paternal Grandfather , age 69 Heart disease Maternal Grandmother , age 70 Essential hypertension Heart disease Hyperlipidemia Paternal Grandmother , age 68 Essential hypertension Heart disease Hyperlipidemia Stroke Son Substance abuse Son No problems noted. Daughter No problems noted. Social History Smoking/Tobacco Use Status: Former Tobacco Use tobacco type: cigarettes Quit Date: 09/26/09 Tobacco: How many years used: 29 Quit status: has quit before Second Hand Exposure: Yes Smoking risk assessment performed?: Yes Alcohol Intake: current Alcohol Intake frequency: a few times a week Alcohol type: hard liquor Drug use: Current Sobriety Substance use type: marijuana Counseling given: No Caregiver/Support person: No Household members: spouse Housing: house Do you need help understanding health information?: Never Pets and animals: Yes Pets and animals: cat(s), dog(s) and horse(s) Sexually active: No Do you think of yourself as: straight/heterosexual Current gender identity: male What is your relationship status?: How often do you talk on the phone with friends or family?: three or more times per week How often do you get together with friends or relatives?: once per week How often do you attend anglican or episcopalian services?: decline to answer Do you belong to any clubs or organized social groups?: no Panel score (0-1 are the most socially isolated patients): 1 What type of physical activity do you participate in: none Duration: 60-90 minutes/day Frequency: does not exercise Mirta/Congregational: Roman Catholic Special mirta needs: No Seatbelt use: sometimes Helmet use: Yes Helmet use: always Drive intox or ride w/intox parts driver: No Do you feel safe at home: Yes Do you feel safe in your relationship?: Yes
--- NOTE | 2025-01-25 12:16 | NUR.NOTE ---
patient Axox4 this shift, VSS, reported mild dizziness this AM but then intense dizziness and vertigo like symptoms this afternoon before lunch when reaching to change the TV buttons. Pt reports looking up and to the right side which set off symptoms. PT eval pending this afternoon. Echo completed but IV infiltrated so still pending bubble study this afternoon, likely d/c to home after. Nursing Note:
--- NOTE | 2025-01-25 12:42 | W.PM.DS.N ---
Date of service: 01/25/25 Time of Service: 12:42 DS: Diagnosis Discharge Diagnosis (1) Vertigo: Status: Acute (2) Hypertension: (3) Hyperlipidemia: Status: Acute (4) Stroke: Status: Chronic (5) CAD (coronary artery disease): Status: Chronic Discharge Plan Disposition Patient Disposition: Home Condition: Stable Discharge Details Reason For Visit: syncope, dizziness Admit Date/Time: 01/24/25 14:12 Admit Provider: Denzel Bryant Attending Provider: Denzel Bryant Primary Care Provider: Meir Vega Hospital Course Hospital Course: This is a 59 year old male who presented to the ED with c/o dizziness while at rehab. has a history of BPPV. work up in the ED was unremarkable, with a negative CTA head and neck. Hospitalist contacted to admit for further stroke work up. MRI negative for acute findings. Echo with no significant valvular disease or evidence of septal wall defect. He remained in NSR on telemetry with no evidence of dysrhythmia. He remained hemodynamically stable and was safely re-ambulated. He was evaluated by PT and was positive for left horizontal canal canalithiasis with recommendation for outpatient PT for vestibular rehab. He is stable and being discharged to home with no new services. discussed with DR Bryant Home Meds and New Rx's Prescriptions: New meclizine 12.5 mg Tablet 12.5 mg PO TID Qty: 30 0RF Continued vitamin B complex Capsule 1 cap PO BID multivitamin Tablet 1 tab PO DAILY albuterol sulfate [Ventolin HFA] 90 mcg/actuation HFA aerosol inhaler 2 puff IH Q6H PRN (Reason: shortness of breath or wheezing) Qty: 18 4RF lisinopril 20 mg tablet 20 mg PO DAILY Qty: 90 4RF gabapentin 100 mg capsule 100 mg PO TID Qty: 270 3RF melatonin 10 mg tablet 10 mg PO HS PRN Trelegy Ellipta 200-62.5-25 mcg blister with device 1 inh inhalation DAILY Qty: 60 12RF tamsulosin 0.4 mg capsule 0.8 mg PO DAILY Qty: 180 4RF tramadol 100 mg tablet 100 mg PO BID PRN (Reason: pain) Qty: 56 0RF chlorthalidone 25 mg tablet 25 mg PO DAILY Qty: 90 3RF Fish Oil 500 MG capsule 2 tab PO DAILY Patient Comments: 4-18-18 pt reports that he hakes 1200 mg daily. hb (DME) Aerochamber Plus Flow-Vu 1 EACH spacer 1 ea Miscellaneous PRN Qty: 1 magnesium oxide 400 mg (241.3 mg magnesium) tablet 400 mg PO HS Qty: 90 0RF cetirizine [Zyrtec] 10 mg tablet 10 mg PO DAILY PRN ibuprofen [IBU] 800 mg tablet 800 mg PO Q6H PRN (Reason: pain) Qty: 90 2RF simvastatin 20 mg tablet 20 mg PO QHS Qty: 90 3RF aspirin [E.C. Prin] 325 MG tablet,delayed release (DR/EC) 325 mg PO DAILY Discharge Instructions Instructions: Vertigo (a type of dizziness) Additional Instructions: continue vestibular exercises as directed. Stand Alone Forms: Nursing Discharge Form Referrals: Meir Vega SENIOR SOFTWARE PROJECT MANAGER [Primary Care Provider] - 02/04/25 2:20 pm [facility] [Provider Group] (outpatient PT for verstibular rehab, positive for left horizontal canal canalithiasis. ) Activity:: Activity as Tolerated Equipment/Supplies:: No Equipment Needed Diet:: As Tolerated Discharge Orders Discharge Orders: Discharge Order (Routine); Ordered 01/25/25 Ordered By: Elba Meyers Discharge Data Discharge Date/Time-TO BE ENTERED AT DEPARTURE: 01/25/25 14:00 DS: Summary Time Spent with Patient providing and/or coordinating discharge services: Greater than 30 minutes Status at Discharge Functional status at discharge: uses cane/walker Overall status at discharge: patient is back to baseline Mental Status: mental status grossly normal Speech and Movement: speech and movement normal Mood: congruent mood Affect: normal affect Quality:SDOH Health Related Social Needs: No Data to Display Exam Narrative Exam Narrative: White male stated age no acute distress head is atraumatic eyes nonicteric noninjected EOMs oral mucosa is moist neck is supple full range of motion cardiovascular regular rate and rhythm respirations even and unlabored skin no lesions abdomen neurologic symptoms psychiatric appropriate mood and affect Psych Mental Status: mental status grossly normal Speech and Movement: speech and movement normal Mood: congruent mood Affect: normal affect DS: Data Vitals/I&O Vitals and I&O: Vital Signs Temperature 36.5 C 01/25/25 07:31 Temperature Source Temporal Artery Scan 01/25/25 07:31 Pulse 57 L 01/25/25 07:31 Pulse Rhythm Regular 01/24/25 17:01 Pulse 62 01/24/25 14:50 Respiratory Rate 16 01/25/25 07:31 Respiratory Effort Normal 01/24/25 17:01 Respiratory Depth Normal 01/24/25 17:01 Respiratory Pattern Normal 01/24/25 17:01 Blood Pressure 143/94 H 01/25/25 07:31 Blood Pressure Mean 110 01/25/25 07:31 Blood Pressure Position Sitting 01/24/25 13:39 Pulse Oximetry 92 01/25/25 07:31 Oxygen Delivery Method Room Air 01/25/25 07:31 Oxygen Flow Rate 0 01/25/25 07:31 Pain Level 5 01/25/25 10:06 Comment RN notified of bp 01/25/25 07:31 Intake & Output 01/24/25 01/25/25 01/25/25 23:59 11:59 23:59 Intake Total 240 / 240 300 / 540 240 / 540 Output Total 200 / 200 Balance 40 / 40 300 / 540 240 / 540 Intake: Oral 240 / 240 300 / 540 240 / 540 Output: Urine 200 / 200 Other: Urine Color Pale Urine Appearance Clear Urine Odor Normal Data Completed and Pending Labs on day of discharge: Labs from last 24 hours 01/25/25 05:44: WBC 10.65, RBC 4.81, Hgb 15.3, Hct 45.1, MCV 94, MCH 31.8, MCHC 33.9, RDW 13.6, Plt Count 256, MPV 9.5, Immature Gran % 0.4, Neutrophils % 68.8, Lymphocytes % 18.9, Monocytes % 8.0, Eosinophils % 3.4, Basophils % 0.5, Nucleated RBC % 0.0, Absolute Neutrophils 7.34 H, Absolute Lymphocytes 2.01, Absolute Monocytes 0.85 H, Absolute Eosinophils 0.36, Absolute Basophils 0.05, Sodium 140, Potassium 3.5, Chloride 103, Carbon Dioxide 28.7, Anion Gap 8.3, BUN 21 H, Creatinine 1.1, Est GFR (CKD-EPI 2020) 76.37, Glucose 129 H, Calcium 8.8, Total Bilirubin 0.6, AST 45 H, ALT 93 H, Alkaline Phosphatase 98, Total Protein 6.5, Albumin 3.2 L 01/24/25 14:00: Troponin I Cancelled 01/24/25 11:50: Troponin I 12 PFSH All Active Problems (Updated 01/24/25 @ 14:27 by Katty Mcarthur APRN) CAD (coronary artery disease) (Chronic) On deep vein thrombosis (DVT) prophylaxis (Acute) Stroke (Chronic) Long toenail (Acute) Lumbar radiculitis (Acute) Sacroiliac joint dysfunction of right side (Acute) Postlaminectomy syndrome of lumbar region (Acute) S/P laminectomy (Acute ~05/03/24) [facility] Bilateral lumbar laminectomy L2-3, L3-4, L4-5 with posterior lumbar fusion L5-S1 Erectile dysfunction (Acute) Vertigo (Acute) Contact dermatitis (Acute) Achilles rupture, right (Acute ~11/2023) Achilles tendon tear (Acute) Nail dystrophy (Acute) Foot drop, right (Acute) Low back pain (Acute) Neck pain (Acute) Posterior right side. Chronic allergic rhinitis (Acute) Sciatica (Acute) Peripheral neuropathy (Acute) Personal history of nicotine dependence (Acute) Quit in 2010 Chronic rhinitis (Acute) Asthma-COPD overlap syndrome (Acute) COVID-19 (Acute) 03/03/22 Vaccinated with booster Essential hypertension (Acute 10/29/13) Nocturia (Acute 05/28/16) Obstructive sleep apnea (Acute) CPAP Hyperlipidemia (Acute) Prediabetes (Acute) Elevated liver function tests (Acute) 10/2021: Probable fatty liver syndrome Obesity (Chronic) Medical History Lumbar spondylosis Lumbar radiculopathy Loss of balance Spondylitis, cervical Hypercholesterolemia BPH (benign prostatic hyperplasia) Hypertension Pulmonary air trapping Nicotine dependence in remission Hypogonadism in male (10/30/15) Surgical History History of neck surgery cervical fusion 12/2023 History of back surgery carolyn lumbar laminectomy L2-3,3-4,4-5, with post fusion 05/07/24 S/P T&A (status post tonsillectomy and adenoidectomy) Age 7/8 History of colonoscopy (~09/2020) Rotator Cuff Repair right HERNIA REPAIR X 3 Family History Mother Essential hypertension Hyperlipidemia Depression Father , 79 Diabetes Essential hypertension Heart disease Hyperlipidemia Depression Brother , 34? Essential hypertension Heart disease Hyperlipidemia Maternal Grandfather Heart disease Paternal Grandfather , age 69 Heart disease Maternal Grandmother , age 70 Essential hypertension Heart disease Hyperlipidemia Paternal Grandmother , age 68 Essential hypertension Heart disease Hyperlipidemia Stroke Son Substance abuse Son No problems noted. Daughter No problems noted. Social History Smoking/Tobacco Use Status: Former Tobacco Use tobacco type: cigarettes Quit Date: 09/26/09 Tobacco: How many years used: 29 Quit status: has quit before Second Hand Exposure: Yes Smoking risk assessment performed?: Yes Alcohol Intake: current Alcohol Intake frequency: a few times a week Alcohol type: hard liquor Drug use: Current Sobriety Substance use type: marijuana Counseling given: No Caregiver/Support person: No Household members: spouse Housing: house Do you need help understanding health information?: Never Pets and animals: Yes Pets and animals: cat(s), dog(s) and horse(s) Sexually active: No Do you think of yourself as: straight/heterosexual Current gender identity: male What is your relationship status?: How often do you talk on the phone with friends or family?: three or more times per week How often do you get together with friends or relatives?: once per week How often do you attend pentecostalism or adventism services?: decline to answer Do you belong to any clubs or organized social groups?: no Panel score (0-1 are the most socially isolated patients): 1 What type of physical activity do you participate in: none Duration: 60-90 minutes/day Frequency: does not exercise Mirta/Judaism: Voodoo Special mirta needs: No Seatbelt use: sometimes Helmet use: Yes Helmet use: always Drive intox or ride w/intox regional dedicated truck driver: No Do you feel safe at home: Yes Do you feel safe in your relationship?: Yes Time Spent with Patient Time Spent with Patient: 45-69 minutes Time was spent: preparing to see the patient(eg.review tests), obtaining and/or reviewing separately otained hiistory, ordering medications,tests, procedures, indepentently interpreting results and counseling the patient
--- NOTE | 2025-01-25 12:49 | PT.INIE ---
PT Notes Visit Reasons: syncope, dizziness Physical Therapy Inpatient Initial Evaluation Date: 01/25/2025 Referring Doctor: Carito Mcarthur NP PT Orders: PT CONSULT: Eval for Assistive Device. Fall Safety Assessment Precautions: Standard. Activity as tolerated. Patient Profile/Admitting Diagnosis: Patient is a 59-year-old male patient admitted for lightheadedness, anxiety, nausea, diaphoreiss, and mild headache. Patient is admitted for CVA work up and for management of symptoms of vertigo, HTN, hyperlipidemia, and CAD. Patient was at outpatient PT facility doing his regular exercises under the minimally supervised program when he experienced spinning-sensation that nearly caught him off-balance. Head and neck CTA negative for posterior circulation stroke. MRI was also negative for any acute abnormality. Patient was referred to PT for assessment of BPPV. PMHX: All Active Problems (Updated 01/24/25 @ 14:27 by Katty Mcarthur APRN) CAD (coronary artery disease) (Chronic) On deep vein thrombosis (DVT) prophylaxis (Acute) Stroke (Chronic) Long toenail (Acute) Lumbar radiculitis (Acute) Sacroiliac joint dysfunction of right side (Acute) Postlaminectomy syndrome of lumbar region (Acute) S/P laminectomy (Acute ~05/03/24) [facility] Bilateral lumbar laminectomy L2-3, L3-4, L4-5 with posterior lumbar fusion L5-S1 Erectile dysfunction (Acute) Vertigo (Acute) Contact dermatitis (Acute) Achilles rupture, right (Acute ~11/2023) Achilles tendon tear (Acute) Nail dystrophy (Acute) Foot drop, right (Acute) Low back pain (Acute) Neck pain (Acute) Posterior right side.Chronic allergic rhinitis (Acute) Sciatica (Acute) Peripheral neuropathy (Acute) Personal history of nicotine dependence (Acute) Quit in 2010 Chronic rhinitis (Acute) Asthma-COPD overlap syndrome (Acute) COVID-19 (Acute) 03/03/22 Vaccinated with booster Essential hypertension (Acute 10/29/13) Nocturia (Acute 05/28/16) Obstructive sleep apnea (Acute) CPAP Hyperlipidemia (Acute) Prediabetes (Acute) Elevated liver function tests (Acute) 10/2021: Probable fatty liver syndrome Obesity (Chronic) Medical History Lumbar spondylosis Lumbar radiculopathy Loss of balance Spondylitis, cervical Hypercholesterolemia BPH (benign prostatic hyperplasia) Hypertension Pulmonary air trapping Nicotine dependence in remission Hypogonadism in male (10/30/15) Surgical History History of neck surgery cervical fusion 12/2023 History of back surgery carolyn lumbar laminectomy L2-3,3-4,4-5, with post fusion 05/07/24 S/P T&A (status post tonsillectomy and adenoidectomy) Age 7/8 History of colonoscopy (~09/2020) Rotator Cuff Repair right HERNIA REPAIR X 3 Social History/Home Situation: Lives with in a private home. Independent with all aspects of ADLs prior to admission. Was regularly going to OP PT for his regular minimally supervised program. Equipment Owned/DME: None Subjective: Patient reported minimal sensation of spinning with positional change. Has had meclizine earlier today. Agreeable to assessment for BPPV to determine laterality of affectation. Agreeable to OP PT for vestibular rehab and continued strengthening. Onset: 01/24/2025, Quality: Room-spinning dizziness Duration: On and off since onset; subsided as of today with Meclizine intake Previous Episodes: Several months ago Exacerbating Factors: Positional change, worse with sit to supine and with head turned to L Headache: Minimal Neck ache: Minimal Nausea/Vomitting: yes to nausea, no vomiting since onset Hearing Loss: None Tinnitus: None Fullness in Ear: None Imbalance: Mild with turning Red Flags: Visual changes: None Dysphagia or Dysarthria: None Facial Weakness: None Incoordination: None Prior Level of Function: Independent with all ADLs Current Level of Function: Mildly cautious with movement and with turning Previous Treatment: None OBJECTIVE: Posture: Good upright posturing Observation: guarded movements, with limited head motions during gait, transfers and bed mobility Mental Status: A and O x 4 Vital Signs: Closely monitored by nursing staff ROM: Cervical ROM: R head rotation about 45 degrees, L less than 30 degrees before onset of symptoms Strength: Cervical muscle strength: 3-/5 Bed Mobility/Transfers: Rolling modified independent Supine to sit modified independent Sit to supine modified independent Sit to stand supervision Stand to sit supervision Gait: 250 feet with slowed and cautions movement. Head turning limited. Trunk rotation decreased. No assistive device. Special Tests: [place]: Negative Coordination: Intact Fine Motor: Intact Visual Tracking: Decrease in smooth pursuit with return to midline from left gaze Head Thrust: Negative [place]-Halpike: Negative but verbalized increased symptoms of lightheadedness with sit<>supine during L Gio-Hallpike Supine Roll Test: mild and short-lived apogeotropic nystagmus with L supine head roll Balance: Static Sitting: Good Dynamic Sitting: Good Static Standing: Good Dynamic Standing: Fair Special Tests: Mobility Limitations Standardized Measure [facility] 6 clicks Basic Mobility Inpatient Short Form: Raw Score: 24 CMS Score: 0% deficit Informed Consent/Education: Patient was instructed in purpose of PT consult and plan of care. Agreeable to proceed with performance of maneuver to determine laterality of affectation. Patient was provided with copy of L BBQ maneuver to ensure accuracy if oerformance. NEURO RE-ED: -BBQ maneuver for L horizontal canal canalithiasis with patient education/training with partial resolution of symptoms. Copy provided as well. ASSESSMENT: Patient presented with apogeotropic nystagmus characteristic of left lateral canal canalithiasis. Patient was educated on performance of L BBQ maneuver for symptom mitigation and was recommended to continue with OP PT for continued vestibular rehab and strengthening. Patient presents with clinical signs and symptoms consistent with current/admitting diagnoses that have resulted to mobility limitations, gait instability, generalized weakness, and overall ADL decline as demonstrated by the following impairment level findings: 1. Limitation of joint range of motion in cervical ROM 2. Sensation of spinning with positional change and head turning Impairments are contributing to the following functional limitations: 1. Increased completion time for mobility ADL performance 2. Increased risk for falls Patient is assessed as a [id number] moderate complexity based on the following: History: 59-year-old male with past medical history as indicated above Examination: Demonstrable impairment above Presentation: Evolving Decision Makin moderate complexity Goals: N/A. PT evalaution and patient education/training only. Plan of Care/Treatment Plan: N/A. PT evalaution and patient education/training only. DISCHARGE RECOMMENDATIONS: [] Home with no services [] [] Home with services [specify] [X] Home with outpatient PT for re-evaluation and continued vestibular rehab for horizontal canal canalithiasis. [] SNF for continued rehabilitation [] [] [facility] Care [] [] SNF versus LTC based on ability to participate and progress [] TREATMENT CODE/TIME: 09607 x 25 minutes for 1 unit, 18168 x 19 minutes for 1 unit (12:49-13:14 and 13:20-13:39). Thank you for the opportunity to participate in the care of this patient. Fior Mccauley PT, DPT, CLT [facility] [place], [place]
--- NOTE | 2025-01-25 14:01 | NUR.NOTE ---
patient discharged to home after normal echo bubble study. Patient leaving by POV with spouse, denies pain on discharge, still some residual dizziness which we discussed may take time to resolve. Given afternoon meclizine prior to leaving and educated on meclizine, discussed f/u appointment, s/s to report back to, medication regimen and prescription. PIV removed, all belongings taken with patient. Nursing Note:
== END 2025-01-25 14:00 | disposition home or self-care (01) ==
LOC: ER 11:01 → MS 17:45
PROVIDERS: Admitting Provider Hospitalist; Emergency Provider Student in an Organized Health Care Education/Training Program; PCP Nurse Practitioner Family; Responsible Provider Nurse Practitioner Acute Care; Visit Provider Hospitalist
DX: R42 Dizziness and giddiness (principal); I10 Essential (primary) hypertension; E78.2 Mixed hyperlipidemia; I25.10 Atherosclerotic heart disease of native coronary artery without angina pectoris; I34.0 Nonrheumatic mitral (valve) insufficiency; Z86.73 Personal history of transient ischemic attack (TIA), and cerebral infarction without residual deficits; Z79.899 Other long term (current) drug therapy; G62.9 Polyneuropathy, unspecified; Z87.891 Personal history of nicotine dependence; J44.9 Chronic obstructive pulmonary disease, unspecified; E78.5 Hyperlipidemia, unspecified; R73.03 Prediabetes; M47.26 Other spondylosis with radiculopathy, lumbar region; F10.90 Alcohol use, unspecified, uncomplicated; E83.42 Hypomagnesemia; R74.01 Elevation of levels of liver transaminase levels; Z68.35 Body mass index [BMI] 35.0-35.9, adult
CPT/HCPCS: 00123; 36415; 36416; 70496; 70498; 80053; 82962; 93005; 94640; 96374; 97112; 97162; 70551; 83735; 84484; 85025; 93010; 93306; 94664; 99223; 99239; G0378; J2060